=== PATIENT | male | born 1935 | race Caucasian/White ===

== ENCOUNTER → 2016-09-20 | Outpatient (CLI) | payer MEDICARE, OTHER ==
[2016-09-20 13:31] LABS: ANION GAP 13 (5-19); BLOOD UREA NITROGEN 45 mg/dL (7-20); CALCIUM 10.8 mg/dL (8.4-10.2); CARBON DIOXIDE 21 mmol/L (22-30); CHLORIDE 106 mmol/L (98-107); GLUCOSE 128 mg/dL (75-110); POTASSIUM 5.3 mmol/L (3.6-5.0)
== END ==
LOC: OD 09:17
PROVIDERS: ATTEND Physician Assistant
DX: E87.5 Hyperkalemia (principal)
CPT/HCPCS: 36415; 80048

== ENCOUNTER 2017-04-05 11:51 | Day surgery (SDC) | payer MEDICARE, OTHER ==
[~2017-04-05 11:51] MED LIST: DIPHENHYDRAMINE HCL 50 MG/ML VIAL ONE; EPINEPHRINE INJ 1 MG/10 ML DISP.SYRIN ONE; FLUMAZENIL INJ 0.5 MG/5 ML VIAL ONE; GLUCAGON,HUMAN RECOMB 1 MG INJ ONE; MIDAZOLAM 2 MG/2 ML INJ ONE; NALOXONE HCL INJ/PF 0.4 MG/1 ML SDV ONE; ONDANSETRON HCL INJ/PF 4 MG/2 ML SDV ONE
[2017-04-05] MEDS: MIDAZOLAM 2 MG/2 ML INJ ONE ×2 (12:57→13:04)
[2017-04-05] MEDS: FENTANYL CITRATE INJ/PF 100 MCG/2 ML AMPUL ONE ×3 (12:59→13:17)
--- NOTE | 2017-04-05 13:55 | Operative Report ---
Operative Report DATE OF SURGERY: 04/05/17 Operative Report: The risks, benefits and alternatives of the procedure including risks of bleeding, perforation requiring surgery are explained to the patient detail and informed consent was obtained. Patient was taken back to the endoscopy suite and placed in the left, lateral decubital position. Timeout was called. Conscious sedation medications provided. An Olympus videoscope was inserted into the patient's rectum. The scope was then carefully advanced all the way to the cecum. Cecum was identified by the usual anatomical landmarks including the ileocecal valve as well as the appendiceal office. Photodocumentation is obtained. Scope was then sequentially pulled back via the various segments of the colon including the ascending colon, hepatic flexure, transverse colon, splenic flexure, descending colon finding to the rectosigmoid portions of the colon. Retroflexion maneuver was performed. PREOPERATIVE DIAGNOSIS: Change of bowel habits POSTOPERATIVE DIAGNOSIS: Diverticulosis. Mild right side inflammation status post biopsy. Redundancy of colon. Internal hemorrhoids, skin tags OPERATION: Colonoscopy with biopsy SURGEON: YUDY VITAL ANESTHESIA: Moderate Sedation - 4 mg of Versed, 75 mcg of fentanyl. Conscious sedation monitoring time 30 minutes. TISSUE REMOVED OR ALTERED: As noted above. COMPLICATIONS: None. ESTIMATED BLOOD LOSS: None. INTRAOPERATIVE FINDINGS: As described above. PROCEDURE: Patient tolerated procedure well. No immediate postprocedure complications are noted. Patient discharged in good condition. Discharge date 04/05/2017. Discharge diet: Regular. Discharge activity: Regular. 2-3 week follow-up to discuss findings. Patient is instructed to call the office or proceed to the emergency room should there be any further problems or questions. We will wait on pathology.
[2017-04-05 14:34] VITALS: BP 134/58
== END 2017-04-05 14:35 | disposition home or self-care (01) ==
LOC: END 11:51
PROVIDERS: ATTEND Internal Medicine Gastroenterology
PROC: 0DBF8ZX Excision of Right Large Intestine, Via Natural or Artificial Opening Endoscopic, Diagnostic (ICD-10-PCS; principal; 2017-04-05 12:30)
DX: K57.30 Diverticulosis of large intestine without perforation or abscess without bleeding (principal); K52.9 Noninfective gastroenteritis and colitis, unspecified; K64.8 Other hemorrhoids; K64.4 Residual hemorrhoidal skin tags; I12.9 Hypertensive chronic kidney disease with stage 1 through stage 4 chronic kidney disease, or unspecified chronic kidney disease; N18.3 Chronic kidney disease, stage 3 (moderate); I25.10 Atherosclerotic heart disease of native coronary artery without angina pectoris; I48.0 Paroxysmal atrial fibrillation; M15.0 Primary generalized (osteo)arthritis; Z79.899 Other long term (current) drug therapy; Z79.82 Long term (current) use of aspirin
CPT/HCPCS: 45380; 88305 ×2; J2250; J3010; J0171; J1200; J1610; J2310; J2405; J3490

== ENCOUNTER 2017-08-02 16:47 | Inpatient (IN) | payer MEDICARE, OTHER ==
[2017-08-02] MEDS ORDERED: ONDANSETRON HCL INJ/PF 4 MG/2 ML SDV IV PRN (17:22)
[2017-08-02] MEDS ORDERED: ACETAMINOPHEN 325 MG TABLET PO PRN (17:22)
[2017-08-02] MEDS ORDERED: LEVALBUTEROL HCL NEB 0.63 MG/3 ML AMPUL NEB PRN (17:22)
[2017-08-02] MEDS ORDERED: MAG HYDROX/AL HYDROX/SIMETH SUSP 30 ML UDCUP PO PRN (17:26)
--- NOTE | 2017-08-02 17:39 | PDOC H&P ---
History of Present Illness Admission Date/PCP: 08/02/17 16:47 RUTH BUI Patient complains of: shortness of the breath and indigestions History of Present Illness: SANJIV DOVER is a 81 year old male This is a 81-year-old male with a significant history of the paroxysmal atrial fibrillation's and history of the hypertension and chronic kidney disease stage III with recently have a colonoscopy done by Dr. Hood due to the change in the bowel habit was all stable came to the officeMs. not feeling well since last 1 week and very short of breath able to walk a few steps and feel like a very indigestion and epigastric area and every time take a deep breath he feels better Patient's denied any cough or congestion's denied any allergy symptoms Patient's denied any chest pain Patient still have on and off constipations problems Patient's used to see Dr. Mercedes as outpatients cardiology but not seen for a long time Patient's have a history of the A. fib and unable to take an anticoagulations due to the bleeding problems in the past and patient refused to take an anticoagulations In the office patient's still feeling weak and not feeling good and with this few distance feeling short of breath and at this point patient's noticed some more leg swelling decided to admit in the hospital for further evaluation and patient's agree Past Medical History Cardiac Medical History: Reports: Coronary Artery Disease, Hypertension - ON MEDICATION Denies: Myocardial Infarction Pulmonary Medical History: Denies: Asthma, Bronchitis, Chronic Obstructive Pulmonary Disease (COPD), Pneumonia, Tuberculosis Neurological Medical History: Denies: Seizures Renal/ Medical History: Reports: Chronic Kidney Disease GI Medical History: Denies: Hepatitis, Hiatal Hernia Musculoskeltal Medical History: Denies: Arthritis Hematology: Denies: Anemia, Sickle Cell Disease Past Surgical History Past Surgical History: Denies: Appendectomy, Cholecystectomy, Coronary Artery Bypass Graft, Gastric Bypass Surgery, Herniorrhaphy, Pacemaker, Tonsillectomy Social History Information Source: Patient Smoking Status: Former Smoker Frequency of Alcohol Use: None Hx Recreational Drug Use: No Hx Prescription Drug Abuse: No Family History Family History: Reviewed & Not Pertinent Parental Family History Reviewed: Yes Children Family History Reviewed: Yes Sibling(s) Family History Reviewed.: Yes Medication/Allergy Home Medications: Allopurinol [Zyloprim 100 Mg Tablet] 100 mg PO DAILY 09/29/11 Furosemide [Lasix 20 mg Tablet] 20 mg PO .QOD 09/29/11 Ramipril [Altace 10 Mg Capsule] 10 mg PO DAILY 09/29/11 Pravastatin Sodium [Pravachol] 20 mg PO DAILY 10/06/11 Aspirin [Aspirin 81 mg Chewable Tablet] 81 mg PO DAILY 10/09/11 Verapamil HCl [Verapamil ER] 180 mg PO BID 07/09/15 Allergies/Adverse Reactions: No Known Allergies Allergy (Verified 04/05/17 11:52) Review of Systems Constitutional: PRESENT: fatigue, weakness. ABSENT: chills, fever(s), headache( s), weight gain, weight loss Eyes: ABSENT: visual disturbances Ears: ABSENT: hearing changes Cardiovascular: PRESENT: dyspnea on exertion. ABSENT: chest pain, edema, orthropnea, palpitations Respiratory: PRESENT: dyspnea. ABSENT: cough, hemoptysis Gastrointestinal: PRESENT: abdominal pain, bloating, constipation. ABSENT: diarrhea, hematemesis, hematochezia, nausea, vomiting Genitourinary: ABSENT: dysuria, hematuria Musculoskeletal: ABSENT: joint swelling Integumentary: ABSENT: rash, wounds Neurological: ABSENT: abnormal gait, abnormal speech, confusion, dizziness, focal weakness, syncope Psychiatric: ABSENT: anxiety, depression, homidical ideation, suicidal ideation Endocrine: ABSENT: cold intolerance, heat intolerance, menstrual abnormalities, polydipsia, polyuria Hematologic/Lymphatic: ABSENT: easy bleeding, easy bruising, lymphadenopathy Physical Exam Vital Signs: Temp Pulse Resp BP Pulse Ox 97.5 F 74 24 H 121/72 96 08/02/17 17:05 08/02/17 17:05 08/02/17 17:05 08/02/17 17:05 08/02/17 17:05 Intake & Output 08/01/17 08/02/17 08/03/17 06:59 06:59 06:59 Weight 72.3 kg General appearance: PRESENT: no acute distress, well-developed, well-nourished Head exam: PRESENT: atraumatic, normocephalic Eye exam: PRESENT: conjunctiva pink, EOMI, PERRLA. ABSENT: scleral icterus Ear exam: PRESENT: normal external ear exam Mouth exam: PRESENT: moist, tongue midline Neck exam: PRESENT: full ROM. ABSENT: carotid bruit, JVD, lymphadenopathy, thyromegaly Respiratory exam: PRESENT: clear to auscultation liz Cardiovascular exam: PRESENT: RRR. ABSENT: diastolic murmur, rubs, systolic murmur Pulses: PRESENT: normal dorsalis pedis pul, +2 pedal pulses bilateral Vascular exam: PRESENT: normal capillary refill GI/Abdominal exam: PRESENT: normal bowel sounds, soft. ABSENT: distended, guarding, mass, organolmegaly, rebound, tenderness Rectal exam: PRESENT: deferred Extremities exam: PRESENT: pedal edema Musculoskeletal exam: PRESENT: ambulatory Neurological exam: PRESENT: alert, awake, oriented to person, oriented to place , oriented to time, oriented to situation, CN II-XII grossly intact. ABSENT: motor sensory deficit Psychiatric exam: PRESENT: appropriate affect, normal mood. ABSENT: homicidal ideation, suicidal ideation Skin exam: PRESENT: dry, intact, warm. ABSENT: cyanosis, rash Assessment & Plan - Diagnosis (1) Shortness of breath Is this a current diagnosis for this admission?: Yes Plan: With possible multifactorial may be a diastolic heart failure due to the chronic kidney disease will get the chest x-ray and start the patient on IV Lasix (2) Congestive heart failure Qualifiers: Congestive heart failure type: diastolic Congestive heart failure chronicity: acute Qualified Code(s): I50.31 - Acute diastolic (congestive) heart failure Is this a current diagnosis for this admission?: Yes Plan: We will get the 2D echocardiogram and start the patient on IV Lasix (3) Chronic kidney disease Qualifiers: Chronic kidney disease stage: stage 3 (moderate) Qualified Code(s): N18.3 - Chronic kidney disease, stage 3 (moderate) Is this a current diagnosis for this admission?: Yes Plan: Recheck the kidney functions (4) Chronic atrial fibrillation Is this a current diagnosis for this admission?: Yes Plan: Current EKG in my office was sinus rhythm (5) Hypertension Qualifiers: Hypertension type: essential hypertension Qualified Code(s): I10 - Essential (primary) hypertension Is this a current diagnosis for this admission?: Yes Plan: Continues to current medications (6) Abdominal discomfort Is this a current diagnosis for this admission?: Yes Plan: Will get the CT abdomen and pelvis with oral contrast only (7) Constipation Qualifiers: Constipation type: unspecified constipation type Qualified Code(s): K59.00 - Constipation, unspecified Is this a current diagnosis for this admission?: Yes Plan: Continues to MiraLAX and Colace - Time Time Spent: 30 to 50 Minutes Medications reviewed and adjusted accordingly: Yes Anticipated discharge: Home Within: Other - Inpatient Certification Medical Necessity: Significant Comorbidiites Make Outpatient Treatment Too Risky , Need Close Monitoring Due to Risk of Patient Decompensation 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
[2017-08-02 18:10] LABS: ABSOLUTE BASOPHILS # (AUTO) 0.1 10^3/uL (0.0-0.2); ABSOLUTE EOSINOPHILS # (AUTO) 0.2 10^3/uL (0.0-0.6); ABSOLUTE LYMPHOCYTES (AUTO) 1.3 10^3/uL (0.5-4.7); ABSOLUTE MONOCYTES (AUTO) 1.4 10^3/uL (0.1-1.4); BASOPHILS % (AUTO) 0.6 % (0-2); EOSINOPHILS % (AUTO) 2.5 % (0-6); HEMATOCRIT 37.6 % (37.9-51.0); HEMOGLOBIN 12.3 g/dL (13.5-17.0); LYMPHOCYTES % (AUTO) 14.3 % (13-45); MEAN CORPUSCULAR HEMOGLOBIN 32.6 pg (27.0-33.4); MEAN CORPUSCULAR HGB CONC 32.7 g/dL (32.0-36.0); MEAN CORPUSCULAR VOLUME 100 fl (80-97); MONOCYTES % (AUTO) 15.3 % (3-13); PLATELET COUNT 296 10^3/uL (150-450); RED BLOOD COUNT 3.78 10^6/uL (4.35-5.55); SEGMENTED NEUTROPHILS % (AUTO) 67.3 % (42-78); TOTAL CELLS COUNTED % (AUTO) 100 %; WHITE BLOOD COUNT 8.9 10^3/uL (4.0-10.5)
[2017-08-02 18:18] LABS: ANION GAP 13 (5-19); BLOOD UREA NITROGEN 35 mg/dL (7-20); CALCIUM 10.7 mg/dL (8.4-10.2); CARBON DIOXIDE 23 mmol/L (22-30); CHLORIDE 101 mmol/L (98-107); CREATINE KINASE 46 U/L (55-170); GLUCOSE 92 mg/dL (75-110); POTASSIUM 5.6 mmol/L (3.6-5.0); SODIUM 137.3 mmol/L (137-145)
[2017-08-02] MEDS ORDERED: ENOXAPARIN SODIUM INJ 30 MG/0.3 ML DISP.SYRIN SUBCUT ONE (18:30)
[2017-08-02 18:31] LABS: CREATINE KINASE MB 1.52 ng/mL (<4.55); TROPONIN I 0.017 ng/mL
[2017-08-02] MEDS ORDERED: SODIUM POLYSTYRENE SULFONATE 15 GM/60 ML PO ONE (19:45)
--- NOTE | 2017-08-02 19:53 | RADIOLOGY REPORT (SQ) ---
EXAM DESCRIPTION: NM LUNG VENT/PERF SCAN COMPLETED DATE/TIME: 08/02/2017 7:27 pm REASON FOR STUDY: sob N18.3 CHRONIC KIDNEY DISEASE, STAGE 3 (MODERATE) I50.30 UNSPECIFIED DIASTOLI C (CONGESTIVE) HEART FAILURE I48.0 PAROXYSMAL ATRIAL FIBRILLATION COMPARISON: None. RADIONUCLIDE AND DOSE: 5.3 millicuries TC-99m MAA Intravenous 32.2 millicuries TC-99m DTPA Inhaled aerosol TECHNIQUE: Eight views of the lungs acquired post ventilation of DTPA aerosol. Eight matching views of the lungs acquired following injection of MAA. LIMITATIONS: Heterogeneous centralized distribution of DTPA aerosol during ventilatory phase. FINDINGS: VENTILATION: Heterogeneous centralized distribution of DTPA aerosol during ventilatory pha se. PERFUSION: Perfusion images with heterogeneous activity with multiple bilateral segmental defects. OTHER: No other significant finding. IMPRESSION: Perfusion images with heterogeneous activity with multiple bilateral segmental defects, chronicity undetermined.Heterogeneous centralized distribution of DTPA aerosol during ventilatory pha se limit assessment of ventilation-perfusion mismatch. TECHNICAL DOCUMENTATION: JOB ID: [id number] [place]-72 2010 [employer]- All Rights Reserved
[2017-08-02] MEDS: FUROSEMIDE INJ/PF 20 MG/2 ML SDV IV SCH (21:17)
[2017-08-03 00:41] LABS: CREATINE KINASE MB 2.32 ng/mL (<4.55); TROPONIN I 0.036 ng/mL
[2017-08-03] MEDS: LANSOPRAZOLE 15 MG TAB.RAP.DR PO SCH ×2 (06:21→17:21)
[2017-08-03 06:24] LABS: ABSOLUTE BASOPHILS # (AUTO) 0.1 10^3/uL (0.0-0.2); ABSOLUTE EOSINOPHILS # (AUTO) 0.5 10^3/uL (0.0-0.6); ABSOLUTE LYMPHOCYTES (AUTO) 1.4 10^3/uL (0.5-4.7); ABSOLUTE MONOCYTES (AUTO) 1.3 10^3/uL (0.1-1.4); ABSOLUTE NEUT (AUTO) 4.7 10^3/uL (1.7-8.2); BASOPHILS % (AUTO) 0.8 % (0-2); EOSINOPHILS % (AUTO) 6.6 % (0-6); HEMOGLOBIN 11.5 g/dL (13.5-17.0); LYMPHOCYTES % (AUTO) 17.5 % (13-45); MEAN CORPUSCULAR HEMOGLOBIN 32.9 pg (27.0-33.4); MEAN CORPUSCULAR HGB CONC 33.7 g/dL (32.0-36.0); MEAN CORPUSCULAR VOLUME 97 fl (80-97); MONOCYTES % (AUTO) 16.6 % (3-13); PLATELET COUNT 269 10^3/uL (150-450); RED BLOOD COUNT 3.49 10^6/uL (4.35-5.55); RED CELL DISTRIBUTION WIDTH 13.3 % (11.5-14.0); SEGMENTED NEUTROPHILS % (AUTO) 58.5 % (42-78); TOTAL CELLS COUNTED % (AUTO) 100 %; WHITE BLOOD COUNT 8.1 10^3/uL (4.0-10.5)
[2017-08-03 06:37] LABS: ANION GAP 9 (5-19); BLOOD UREA NITROGEN 35 mg/dL (7-20); CALCIUM 9.7 mg/dL (8.4-10.2); CARBON DIOXIDE 27 mmol/L (22-30); CHLORIDE 101 mmol/L (98-107); CREATINE KINASE 74 U/L (55-170); GLUCOSE 85 mg/dL (75-110); SODIUM 137.2 mmol/L (137-145)
[2017-08-03 06:45] LABS: POTASSIUM 4.4 mmol/L (3.6-5.0)
[2017-08-03 06:47] LABS: CREATINE KINASE MB 2.51 ng/mL (<4.55); TROPONIN I 0.034 ng/mL
--- NOTE | 2017-08-03 09:23 | RADIOLOGY REPORT (SQ) ---
EXAM DESCRIPTION: CT ABD/PELVIS ORAL ONLY COMPLETED DATE/TIME: 08/02/2017 7:38 pm REASON FOR STUDY: Abdominal pain N18.3 CHRONIC KIDNEY DISEASE, STAGE 3 (MODERATE) I50.30 UNSPECIFI ED DIASTOLIC (CONGESTIVE) HEART FAILURE I48.0 PAROXYSMAL ATRIAL FIBRILLATION COMPARISON: None. TECHNIQUE: CT scan of the abdomen and pelvis performed with oral contrast and no intravenous contras t. Images reviewed with lung, soft tissue, and bone windows. Reconstructed coronal and sagittal MPR i mages reviewed. All images stored on PACS. All CT scanners at this facility use dose modulation, iterative reconstruction, and/or weight based d osing when appropriate to reduce radiation dose to as low as reasonably achievable (ALARA). [facility]: Dose Right [facility]: CareDose [facility]: Dose Right [facility]: Teradose 4D [facility]: GroundLink RADIATION DOSE: CT Rad equipment meets quality standard of care and radiation dose reduction techniq ues were employed. CTDIvol: 6.8 mGy. DLP: 358 mGy-cm. mGy. LIMITATIONS: None. FINDINGS: LOWER CHEST: No significant findings. No nodules or infiltrates. NON-CONTRASTED LIVER, SPLEEN, ADRENALS: Evaluation limited by lack of IV contrast. No identified sign ificant masses. PANCREAS: No masses. No peripancreatic inflammatory changes. GALLBLADDER: No identified stones by CT criteria. No inflammatory changes to suggest cholecystitis. RIGHT KIDNEY AND URETER: Cortical scarring. 1 cm cortical cyst. No suspicious masses. Assessment li mited by lack of IV contrast. No significant calcifications. No hydronephrosis or hydroureter. LEFT KIDNEY AND URETER: Cortical scarring. No suspicious masses. Assessment limited by lack of IV co ntrast. Calyceal calculi, the largest in the lower pole measuring 6 mm. No hydronephrosis or hydr oureter. AORTA AND RETROPERITONEUM: No aneurysm. No retroperitoneal masses or adenopathy. BOWEL AND PERITONEAL CAVITY: Scattered colonic diverticuli, particularly in the descending and sigmoi d colon. No obvious masses or inflammatory changes. No free fluid. APPENDIX: Normal. PELVIS, BLADDER, AND ABDOMINAL WALL: No abnormal pelvic masses. No abdominal wall hernias. Bladder is somewhat distended. BONES: No significant findings. Degenerative changes in the spine. OTHER: No other significant finding. IMPRESSION: 1. THE BLADDER APPEARS SOMEWHAT DISTENDED. THIS MAY BE INCIDENTAL BUT NEED TO EXCLUDE THE POSSIBILIT Y OF BLADDER OUTLET OBSTRUCTION. 2. COLONIC DIVERTICULOSIS. NO CT FINDINGS OF ACUTE DIVERTICULITIS. 3. NONOBSTRUCTING CALYCEAL CALCULI IN THE LEFT KIDNEY. 4. OTHER CHRONIC FINDINGS ABOVE. NO ACUTE ABDOMINAL PROCESS. TECHNICAL DOCUMENTATION: JOB ID: [id number] Quality ID # [id number]: Final reports with documentation of one or more dose reduction techniques (e.g., Au tomated exposure control, adjustment of the mA and/or kV according to patient size, use of iterative reconstruction technique) 2010 [employer]- All Rights Reserved
--- NOTE | 2017-08-03 09:25 | RADIOLOGY REPORT (SQ) ---
EXAM DESCRIPTION: CHEST PA/LAT COMPLETED DATE/TIME: 08/02/2017 7:41 pm REASON FOR STUDY: sob N18.3 CHRONIC KIDNEY DISEASE, STAGE 3 (MODERATE) I50.30 UNSPECIFIED DIASTOLI C (CONGESTIVE) HEART FAILURE I48.0 PAROXYSMAL ATRIAL FIBRILLATION COMPARISON: 12/02/2014. NUMBER OF VIEWS: Two view. TECHNIQUE: Frontal and lateral radiographic views of the chest acquired. LIMITATIONS: None. FINDINGS: LUNGS AND PLEURA: Chronic scarring. No opacities, masses or pneumothorax. No pleural effu allen. Attenuated blood vessels and flattened rachael-diaphragms. MEDIASTINUM AND HILAR STRUCTURES: No masses. No contour abnormalities. HEART AND VASCULAR STRUCTURES: Heart normal in size and contour. No evidence for failure. BONES: No acute findings. Degenerative changes in the spine. HARDWARE: None in the chest. OTHER: No other significant finding. IMPRESSION: COPD. NO ACUTE RADIOGRAPHIC FINDING IN THE CHEST. TECHNICAL DOCUMENTATION: JOB ID: [id number] [employer]- All Rights Reserved
[2017-08-03] MEDS: ENOXAPARIN SODIUM INJ 30 MG/0.3 ML DISP.SYRIN SUBCUT SCH (09:35)
[2017-08-03] MEDS: FUROSEMIDE INJ/PF 20 MG/2 ML SDV IV SCH ×2 (09:35→22:02)
[2017-08-03] MEDS: DOCUSATE SODIUM 100 MG CAPSULE PO SCH (09:36)
[2017-08-03] MEDS ORDERED: INFLUENZA ADLT QUAD (36MOS+) 2017-18 VAC 0.5 ML SYR IM PRN (10:59)
--- NOTE | 2017-08-03 12:16 | RADIOLOGY REPORT (SQ) ---
EXAM DESCRIPTION: VENOUS BILATERAL LOWER COMPLETED DATE/TIME: 08/03/2017 12:07 pm REASON FOR STUDY: leg swelling N18.3 CHRONIC KIDNEY DISEASE, STAGE 3 (MODERATE) I50.30 UNSPECIFIED DIASTOLIC (CONGESTIVE) HEART FAILURE I48.0 PAROXYSMAL ATRIAL FIBRILLATION COMPARISON: None. TECHNIQUE: Dynamic and static washington scale and color images acquired of both lower extremity venous sy stems. Selected spectral images acquired with additional compression and augmentation maneuvers. Imag es stored on PACS. LIMITATIONS: None. FINDINGS: RIGHT LEG COMMON FEMORAL AND FEMORAL: Normal phasicity, compression and augmentation. No visualized echogenic m aterial on washington scale. No defects on color images. POPLITEAL: Normal compression and augmentation. No visualized echogenic material on washington scale. No de fects on color images. CALF VESSELS: Normal compression and augmentation. No visualized echogenic material on washington scale. No defects on color image. GSV AND SSV: Normal compression. No visualized echogenic material on washington scale. No defects on color images. ANY DEEP VENOUS INSUFFICIENCY: Not evaluated. ANY EVIDENCE OF POPLITEAL CYST: No. OTHER: No other significant finding. LEFT LEG COMMON FEMORAL AND FEMORAL: Normal phasicity, compression and augmentation. No visualized echogenic m aterial on washington scale. No defects on color images. POPLITEAL: Normal compression and augmentation. No visualized echogenic material on washington scale. No de fects on color images. CALF VESSELS: Normal compression and augmentation. No visualized echogenic material on washington scale. No defects on color images. GSV AND SSV: Normal compression. No visualized echogenic material on washington scale. No defects on color images. ANY DEEP VENOUS INSUFFICIENCY: Not evaluated. ANY EVIDENCE POPLITEAL CYST: No. OTHER: No other significant finding. IMPRESSION: NO EVIDENCE DVT OR SVT IN EITHER LEG. TECHNICAL DOCUMENTATION: JOB ID: [id number] [employer]- All Rights Reserved
--- NOTE | 2017-08-03 12:39 | XCELERA REPORT ---
[address] [address] Transthoracic Echocardiogram Report Name: SANJIV DOVER Age: 81 yrs Gender: Male : 1935 Patient Status: Inpatient Patient Location: [address] [place] [address] Study Date: 08/03/2017 10:12 AM Height: 70 in Weight: 160 lb BSA: 1.9 m2 Procedure: A complete two-dimensional transthoracic echocardiogram was performed (2D, M-mode, spectral and color flow Doppler). The study was technically difficult with many images being suboptimal in quality. Reason For Study: CHEST PAIN,SOB Ordering Physician: DYLAN BUSTAMANTE Performed By: Nhung Dudley Interpretation Summary Left ventricular systolic function is borderline reduced. The Ejection Fraction estimate is 50-55% Doppler measurements suggest pseudonormalized left ventricular relaxation, which is associated with grade II/IV or mild to moderate diastolic dysfunction There is borderline concentric left ventricular hypertrophy. The left ventricle is grossly normal size. Not all wall segments were well visualized. Regional wall motion abnormalities cannot be excluded due to limited visualization. The right ventricle is mildly dilated. The right atrium is mild to moderately dilated. The left atrium is mildly dilated. There is a mild amount of mitral regurgitation There is no mitral valve stenosis. There is mild aortic stenosis There is a peak gradient of 20-25 mm of Hg. No aortic regurgitation is present. No tricuspid regurgitation. There is no tricuspid stenosis. The aortic root is not well visualized. The inferior vena cava appeared normal and decreased > 50% with respiration (RAP 5-10 mmHg) There is no pericardial effusion. MMode/2D Measurements & Calculations RVDd: 2.9 cm LVIDd: 4.8 cm FS: 26.8 % Ao root diam: 3.5 cm IVSd: 0.85 cm LVIDs: 3.5 cm EDV(Teich): 109.3 ml LVPWd: 0.91 cmESV(Teich): 52.3 ml Ao root area: 9.8 cm2 EF(Teich): 52.2 % LA dimension: 4.0 cm LVOT diam: 2.0 cm LVOT area: 3.0 cm2 Doppler Measurements & Calculations MV E max iban: MV P1/2t max iban: Ao V2 max: LV V1 max P.1 cm/sec 107.6 cm/sec 227.9 cm/sec 4.4 mmHg MV P1/2t: 49.8 msec Ao max PG: LV V1 mean PG: MVA(P1/2t): 4.4 cm2 20.8 mmHg 2.6 mmHg MV dec slope: Ao V2 mean: LV V1 max: 632.2 cm/sec2 128.5 cm/sec 104.7 cm/sec Ao mean PG: LV V1 mean: 8.7 mmHg 74.5 cm/sec Ao V2 VTI: LV V1 VTI: 29.9 cm 17.8 cm FAUSTO(I,D): 1.8 cm2 FAUSTO(V,D): 1.4 cm2 SV(LVOT): 53.5 ml PA V2 max: 77.0 cm/sec PA max P.4 mmHg Left Ventricle The left ventricle is grossly normal size. There is borderline concentric left ventricular hypertrophy. Left ventricular systolic function is borderline reduced. The Ejection Fraction estimate is 50-55%. Doppler measurements suggest pseudonormalized left ventricular relaxation, which is associated with grade II/IV or mild to moderate diastolic dysfunction. Not all wall segments were well visualized. Regional wall motion abnormalities cannot be excluded due to limited visualization. Right Ventricle The right ventricle is mildly dilated. Right ventricular function cannot be assessed due to poor image quality. Atria The right atrium is mild to moderately dilated. The left atrium is mildly dilated. Interarterial septum not well visualized and not well dopplered. Cannot comment on ASD/PFO presence. Mitral Valve The mitral valve is grossly normal. There is no mitral valve stenosis. There is a mild amount of mitral regurgitation. Aortic Valve The aortic valve is mildly calcified. There is mild aortic stenosis. There is a peak gradient of 20-25 mm of Hg. No aortic regurgitation is present. Tricuspid Valve The tricuspid valve is not well visualized secondary to technical limitations. There is no tricuspid stenosis. No tricuspid regurgitation. Pulmonic Valve The pulmonic valve is not well visualized. Great Vessels The aortic root is not well visualized. The inferior vena cava appeared normal and decreased > 50% with respiration (RAP 5-10 mmHg). Effusions There is no pericardial effusion. : DYLAN BUSTAMANTE > Ryne Leon
--- NOTE | 2017-08-03 13:15 | PDOC PROGRESS REPORT ---
Subjective Subjective:: Patient is currently doing fair Patient's VQ scan is not very clear but definitely some perfusion defect Patient's ultrasound of the lower extremity was negative for any DVT and the d- dimer is mildly elevated Patient echocardiogram suggests some diastolic dysfunctions Patient's denied any chest pain denied any shortness of the breath while resting Patient have a history of the 60 year of the smoking and it definitely patient have a COPD Reason For Visit: SHORTNESS OF BREATH Physical Exam Vital Signs: Temp Pulse Resp BP Pulse Ox 98.0 F 93 20 125/69 91 L 08/03/17 11:55 08/03/17 11:55 08/03/17 11:55 08/03/17 11:55 08/03/17 11:55 Intake & Output 08/02/17 08/03/17 08/04/17 06:59 06:59 06:59 Intake Total 403 300 Balance 403 300 Weight 73 kg General appearance: PRESENT: no acute distress, well-developed, well-nourished Head exam: PRESENT: atraumatic, normocephalic Eye exam: PRESENT: conjunctiva pink, EOMI, PERRLA. ABSENT: scleral icterus Ear exam: PRESENT: normal external ear exam Mouth exam: PRESENT: moist, tongue midline Neck exam: PRESENT: full ROM. ABSENT: carotid bruit, JVD, lymphadenopathy, thyromegaly Respiratory exam: PRESENT: clear to auscultation liz Cardiovascular exam: PRESENT: RRR. ABSENT: diastolic murmur, rubs, systolic murmur Pulses: PRESENT: normal dorsalis pedis pul, +2 pedal pulses bilateral Vascular exam: PRESENT: normal capillary refill GI/Abdominal exam: PRESENT: normal bowel sounds, soft. ABSENT: distended, guarding, mass, organolmegaly, rebound, tenderness Rectal exam: PRESENT: deferred Extremities exam: ABSENT: full ROM, left AKA, right AKA, left BKA, right BKA, calf tenderness, joint swelling, pedal edema, tenderness, other Musculoskeletal exam: PRESENT: ambulatory Neurological exam: PRESENT: alert, awake, oriented to person, oriented to place , oriented to time, oriented to situation, CN II-XII grossly intact. ABSENT: motor sensory deficit Psychiatric exam: PRESENT: appropriate affect, normal mood. ABSENT: homicidal ideation, suicidal ideation Skin exam: PRESENT: dry, intact, warm. ABSENT: cyanosis, rash Results Laboratory Results: 08/03/17 06:00 08/03/17 06:00 08/02/17 08/02/17 08/02/17 17:55 17:55 17:55 WBC 8.9 RBC 3.78 L Hgb 12.3 L Hct 37.6 L MCV 100 H MCH 32.6 MCHC 32.7 RDW 14.0 Plt Count 296 Seg Neutrophils % 67.3 Lymphocytes % 14.3 Monocytes % 15.3 H Eosinophils % 2.5 Basophils % 0.6 Absolute Neutrophils 6.0 Absolute Lymphocytes 1.3 Absolute Monocytes 1.4 Absolute Eosinophils 0.2 Absolute Basophils 0.1 Sodium 137.3 Potassium 5.6 H Chloride 101 Carbon Dioxide 23 Anion Gap 13 BUN 35 H Creatinine 2.20 H Est GFR ( Amer) 35 L Est GFR (Non-Af Amer) 29 L Glucose 92 Calcium 10.7 H Magnesium TSH 2.29 08/03/17 08/03/17 06:00 06:00 WBC 8.1 RBC 3.49 L Hgb 11.5 L Hct 34.0 L MCV 97 MCH 32.9 MCHC 33.7 RDW 13.3 Plt Count 269 Seg Neutrophils % 58.5 Lymphocytes % 17.5 Monocytes % 16.6 H Eosinophils % 6.6 H Basophils % 0.8 Absolute Neutrophils 4.7 Absolute Lymphocytes 1.4 Absolute Monocytes 1.3 Absolute Eosinophils 0.5 Absolute Basophils 0.1 Sodium 137.2 Potassium 4.4 D Chloride 101 Carbon Dioxide 27 Anion Gap 9 BUN 35 H Creatinine 2.03 H Est GFR ( Amer) 38 L Est GFR (Non-Af Amer) 32 L Glucose 85 Calcium 9.7 Magnesium 2.0 TSH 08/02/17 08/02/17 08/02/17 17:55 17:55 23:55 Creatine Kinase 46 L 61 CK-MB (CK-2) 1.52 Troponin I 0.017 NT-Pro-B Natriuret Pep 4220 H 08/02/17 08/03/17 08/03/17 23:55 06:00 06:00 Creatine Kinase 74 CK-MB (CK-2) 2.32 2.51 Troponin I 0.036 0.034 NT-Pro-B Natriuret Pep Impressions: Abdomen/Pelvis CT 08/02/17 00:00 IMPRESSION: 1. THE BLADDER APPEARS SOMEWHAT DISTENDED. THIS MAY BE INCIDENTAL BUT NEED TO EXCLUDE THE POSSIBILITY OF BLADDER OUTLET OBSTRUCTION. 2. COLONIC DIVERTICULOSIS. NO CT FINDINGS OF ACUTE DIVERTICULITIS. 3. NONOBSTRUCTING CALYCEAL CALCULI IN THE LEFT KIDNEY. 4. OTHER CHRONIC FINDINGS ABOVE. NO ACUTE ABDOMINAL PROCESS. Lung Scan-VQ NM 08/02/17 00:00 IMPRESSION: Perfusion images with heterogeneous activity with multiple bilateral segmental defects, chronicity undetermined.Heterogeneous centralized distribution of DTPA aerosol during ventilatory phase limit assessment of ventilation-perfusion mismatch. Chest X-Ray 08/02/17 17:25 IMPRESSION: COPD. NO ACUTE RADIOGRAPHIC FINDING IN THE CHEST. Venous Doppler Study 08/03/17 00:00 IMPRESSION: NO EVIDENCE DVT OR SVT IN EITHER LEG. Assessment & Plan - Diagnosis (1) Shortness of breath Is this a current diagnosis for this admission?: Yes Plan: The VQ scan was indeterminant with the patient unable to get the CT angiograms and does not look like patient have any acute PE we consult the information technology teacher for further evaluations with elevated d-dimer Most likely related to the diastolic dysfunctions and related to the underlying COPD (2) Congestive heart failure Qualifiers: Congestive heart failure type: diastolic Congestive heart failure chronicity: acute Qualified Code(s): I50.31 - Acute diastolic (congestive) heart failure Is this a current diagnosis for this admission?: Yes Plan: Continues to IV Lasix (3) Chronic kidney disease Qualifiers: Chronic kidney disease stage: stage 3 (moderate) Qualified Code(s): N18.3 - Chronic kidney disease, stage 3 (moderate) Is this a current diagnosis for this admission?: Yes Plan: We hold the ramipril (4) Chronic atrial fibrillation Is this a current diagnosis for this admission?: Yes Plan: Since do not want anticoagulations (5) Hypertension Qualifiers: Hypertension type: essential hypertension Qualified Code(s): I10 - Essential (primary) hypertension Is this a current diagnosis for this admission?: Yes Plan: Continues to current medications (6) Abdominal discomfort Is this a current diagnosis for this admission?: Yes Plan: Patient CT abdomen pelvis was negative for any acute finding (7) Constipation Qualifiers: Constipation type: unspecified constipation type Qualified Code(s): K59.00 - Constipation, unspecified Is this a current diagnosis for this admission?: Yes Plan: Continues to MiraLAX and Colace - Time Time Spent with patient: 15-24 minutes Medications reviewed and adjusted accordingly: Yes Anticipated discharge: Home Within: Other - Inpatient Certification Medical Necessity: Need Close Monitoring Due to Risk of Patient Decompensation Post Hospital Care: D/C Webmethods Consultant Documentation - Plan Summary Plan Summary: Will get the CT of the chest and continues to other monitor
--- NOTE | 2017-08-03 14:41 | RADIOLOGY REPORT (SQ) ---
EXAM DESCRIPTION: CT CHEST WITHOUT COMPLETED DATE/TIME: 08/03/2017 2:10 pm REASON FOR STUDY: sob/copd/chf N18.3 CHRONIC KIDNEY DISEASE, STAGE 3 (MODERATE) I50.30 UNSPECIFIED DIASTOLIC (CONGESTIVE) HEART FAILURE I48.0 PAROXYSMAL ATRIAL FIBRILLATION COMPARISON: Chest x-ray dated 08/02/2017. TECHNIQUE: CT scan performed of the chest without intravenous contrast. Images reviewed with lung, soft tissue and bone windows. Reconstructed coronal and sagittal MPR images reviewed. All images st ored on PACS. All CT scanners at this facility use dose modulation, iterative reconstruction, and/or weight based d osing when appropriate to reduce radiation dose to as low as reasonably achievable (ALARA). [facility]: Dose Right [facility]: CareDose [facility]: Dose Right [facility]: Teradose 4D [facility]: [employer] Technologies RADIATION DOSE: CT Rad equipment meets quality standard of care and radiation dose reduction techniq ues were employed. CTDIvol: 4.9 mGy. DLP: 204 mGy-cm. mGy. LIMITATIONS: No technical limitations. FINDINGS: LUNGS AND PLEURA: Mild emphysematous changes in the upper lobes. Mild scarring in the rig ht lung. No masses, infiltrates, pneumothorax. No pleural effusions, calcifications. HILAR AND MEDIASTINAL STRUCTURES: No identified masses or abnormal nodes. No obvious aneurysm. HEART AND VASCULAR STRUCTURES: No aneurysm. No pericardial effusion. UPPER ABDOMEN: No significant findings. Limited exam. THYROID AND OTHER SOFT TISSUES: No masses. No adenopathy. BONES: No significant finding. HARDWARE: None in the chest. OTHER: No other significant findings. IMPRESSION: MILD EMPHYSEMATOUS CHANGES AND SCARRING. NO ACUTE FINDING ON NON-CONTRASTED CHEST CT. TECHNICAL DOCUMENTATION: JOB ID: [id number] Quality ID # [id number]: Final reports with documentation of one or more dose reduction techniques (e.g., Au tomated exposure control, adjustment of the mA and/or kV according to patient size, use of iterative reconstruction technique) 2010 [employer]- All Rights Reserved
[2017-08-03] MEDS: ATORVASTATIN CALCIUM 10 MG TABLET PO SCH (22:02)
[2017-08-03] MEDS: VERAPAMIL HCL 180 MG TABLET.SA PO SCH (22:02)
[2017-08-04 05:32] LABS: ANION GAP 10 (5-19); BLOOD UREA NITROGEN 37 mg/dL (7-20); CALCIUM 9.6 mg/dL (8.4-10.2); CARBON DIOXIDE 27 mmol/L (22-30); CHLORIDE 102 mmol/L (98-107); GLUCOSE 93 mg/dL (75-110); POTASSIUM 4.2 mmol/L (3.6-5.0); SODIUM 138.8 mmol/L (137-145)
[2017-08-04] MEDS: LANSOPRAZOLE 15 MG TAB.RAP.DR PO SCH ×2 (06:52→18:53)
--- NOTE | 2017-08-04 08:02 | EKG REPORT ---
SEVERITY:- ABNORMAL ECG - ATRIAL FIBRILLATION : Confirmed by: Hanna Billingsley MD 04-Aug-2017 08:01:39
--- NOTE | 2017-08-04 08:26 | PDOC CONSULTATION ---
Consultation Consult Date: 08/04/17 Attending physician:: DYLAN BUSTAMANTE Consult reason:: Concern PE History of Present Illness Admission Date/PCP: 08/02/17 16:47 RUTH BUI Patient complains of: SOB/NGUYEN History of Present Illness: 81-year-old male with known history of COPD, presents with worsening shortness of breath. He tells me he always has shortness of breath at just a few steps of walking, but generally when he sits he does not have shortness of breath, but about a day to 2 days before admission, he noted that he was having shortness of breath at rest as well. So he presented to his PCPs office, and ultimately was admitted for workup of worsening dyspnea and shortness of breath. He had an extensive workup including VQ scan because his creatinine was too elevated to consider IV contrast. I reviewed the VQ scan, it notes some perfusion ventilation defects, and intermediate risk for PE. However, because of the emphysema there were certainly technical difficulties in that. He had a d-dimer drawn which was 0.58, so barely above normal. He had a CT of the chest without contrast done which did show severe emphysema. He had an echocardiogram which indicated fairly high-grade diastolic dysfunction. He has been diuresed since being admitted, and he feels much better and he feels like he is at baseline now in terms of his lung status. Of note, he does have history of A. fib, and was on chronic anticoagulation for that but unfortunately had recurrent GI bleeding episodes, so ultimately decided against any further anticoagulation for the A. fib. Past Medical History Cardiac Medical History: Reports: Coronary Artery Disease, Hypertension - ON MEDICATION Denies: Myocardial Infarction Pulmonary Medical History: Reports: Chronic Obstructive Pulmonary Disease (COPD) Denies: Asthma, Bronchitis, Pneumonia, Tuberculosis Neurological Medical History: Denies: Seizures Renal/ Medical History: Reports: Chronic Kidney Disease GI Medical History: Denies: Hepatitis, Hiatal Hernia Musculoskeltal Medical History: Denies: Arthritis Hematology: Denies: Anemia, Sickle Cell Disease Past Surgical History Past Surgical History: Denies: Appendectomy, Cholecystectomy, Coronary Artery Bypass Graft, Gastric Bypass Surgery, Herniorrhaphy, Pacemaker, Tonsillectomy Social History Information Source: Patient Smoking Status: Former Smoker Number of Years Smokin Last Time Smoked: 2013 Frequency of Alcohol Use: None Hx Recreational Drug Use: No Hx Prescription Drug Abuse: No Family History Family History: Reviewed & Not Pertinent Parental Family History Reviewed: Yes Children Family History Reviewed: Yes Sibling(s) Family History Reviewed.: Yes Medication/Allergy Home Medications: Allopurinol [Zyloprim 100 mg Tablet] 100 mg PO DAILY 08/02/17 Aspirin [Aspirin 81 mg Chewable Tablet] 81 mg PO DAILY 08/02/17 Furosemide [Lasix 20 mg Tablet] 20 mg PO Q2D@0800 08/02/17 Pravastatin Sodium [Pravachol] 20 mg PO DAILY 08/02/17 Ramipril [Altace 10 mg Capsule] 10 mg PO DAILY 08/02/17 Verapamil HCl [Verapamil ER] 180 mg PO Q12 08/02/17 Allergies/Adverse Reactions: No Known Allergies Allergy (Verified 04/05/17 11:52) Review of Systems Constitutional: ABSENT: chills, fever(s), headache(s), weight gain, weight loss Eyes: ABSENT: visual disturbances Ears: ABSENT: hearing changes Cardiovascular: ABSENT: chest pain, dyspnea on exertion, edema, orthropnea, palpitations Respiratory: ABSENT: cough, hemoptysis Gastrointestinal: ABSENT: abdominal pain, constipation, diarrhea, hematemesis, hematochezia, nausea, vomiting Genitourinary: ABSENT: dysuria, hematuria Musculoskeletal: ABSENT: joint swelling Integumentary: ABSENT: rash, wounds Neurological: ABSENT: abnormal gait, abnormal speech, confusion, dizziness, focal weakness, syncope Psychiatric: ABSENT: anxiety, depression, homidical ideation, suicidal ideation Endocrine: ABSENT: cold intolerance, heat intolerance, polydipsia, polyuria Hematologic/Lymphatic: ABSENT: easy bleeding, easy bruising Physical Exam Vital Signs: Temp Pulse Resp BP Pulse Ox 97.6 F 66 16 134/76 H 93 08/03/17 23:51 08/04/17 02:00 08/03/17 23:51 08/03/17 23:51 08/03/17 23:51 Intake & Output 08/03/17 08/04/17 08/05/17 06:59 06:59 06:59 Intake Total 403 593 Balance 403 593 Weight 73 kg 74.9 kg General appearance: PRESENT: no acute distress, well-developed, well-nourished Head exam: PRESENT: atraumatic, normocephalic Eye exam: PRESENT: conjunctiva pink, EOMI, PERRLA. ABSENT: scleral icterus Ear exam: PRESENT: normal external ear exam Mouth exam: PRESENT: moist, tongue midline Neck exam: ABSENT: carotid bruit, JVD, lymphadenopathy, thyromegaly Respiratory exam: PRESENT: clear to auscultation liz. ABSENT: rales, rhonchi, wheezes Cardiovascular exam: PRESENT: RRR. ABSENT: diastolic murmur, rubs, systolic murmur Pulses: PRESENT: normal dorsalis pedis pul Vascular exam: PRESENT: normal capillary refill GI/Abdominal exam: PRESENT: normal bowel sounds, soft. ABSENT: distended, guarding, mass, organolmegaly, rebound, tenderness Rectal exam: PRESENT: deferred Extremities exam: PRESENT: full ROM. ABSENT: calf tenderness, clubbing, pedal edema Neurological exam: PRESENT: alert, awake, oriented to person, oriented to place , oriented to time, oriented to situation, CN II-XII grossly intact. ABSENT: motor sensory deficit Psychiatric exam: PRESENT: appropriate affect, normal mood. ABSENT: homicidal ideation, suicidal ideation Skin exam: PRESENT: dry, intact, warm. ABSENT: cyanosis, rash Results Laboratory Results: 08/03/17 06:00 08/04/17 05:08 08/04/17 05:08 Sodium 138.8 Potassium 4.2 Chloride 102 Carbon Dioxide 27 Anion Gap 10 BUN 37 H Creatinine 1.94 H Est GFR ( Amer) 40 L Est GFR (Non-Af Amer) 33 L Glucose 93 Calcium 9.6 08/02/17 08/02/17 08/02/17 17:55 17:55 23:55 Creatine Kinase 46 L 61 CK-MB (CK-2) 1.52 Troponin I 0.017 NT-Pro-B Natriuret Pep 4220 H 08/02/17 08/03/17 08/03/17 23:55 06:00 06:00 Creatine Kinase 74 CK-MB (CK-2) 2.32 2.51 Troponin I 0.036 0.034 NT-Pro-B Natriuret Pep Impressions: Abdomen/Pelvis CT 08/02/17 00:00 IMPRESSION: 1. THE BLADDER APPEARS SOMEWHAT DISTENDED. THIS MAY BE INCIDENTAL BUT NEED TO EXCLUDE THE POSSIBILITY OF BLADDER OUTLET OBSTRUCTION. 2. COLONIC DIVERTICULOSIS. NO CT FINDINGS OF ACUTE DIVERTICULITIS. 3. NONOBSTRUCTING CALYCEAL CALCULI IN THE LEFT KIDNEY. 4. OTHER CHRONIC FINDINGS ABOVE. NO ACUTE ABDOMINAL PROCESS. Lung Scan-VQ NM 08/02/17 00:00 IMPRESSION: Perfusion images with heterogeneous activity with multiple bilateral segmental defects, chronicity undetermined.Heterogeneous centralized distribution of DTPA aerosol during ventilatory phase limit assessment of ventilation-perfusion mismatch. Chest X-Ray 08/02/17 17:25 IMPRESSION: COPD. NO ACUTE RADIOGRAPHIC FINDING IN THE CHEST. Chest CT 08/03/17 00:00 IMPRESSION: MILD EMPHYSEMATOUS CHANGES AND SCARRING. NO ACUTE FINDING ON NON- CONTRASTED CHEST CT. Venous Doppler Study 08/03/17 00:00 IMPRESSION: NO EVIDENCE DVT OR SVT IN EITHER LEG. Assessment & Plan - Diagnosis (1) Shortness of breath Is this a current diagnosis for this admission?: Yes Plan: I believe this was related in part to the diastolic dysfunction, he might of been somewhat fluid overloaded, he is much better with diuresis. Some portion may be secondary to mild COPD exacerbation because of the weather changes, generally patients when it is colder out will have worsening breathing status. I do not, however, believe it is highly likely that patient has chronic PE causing this. Lower extremity Doppler was negative for DVT, and d-dimer was only mildly elevated. When we have acute PE we generally see that number above 1 although 0.5 is the cutoff for normal. From a hematologic standpoint, I believe patient can be safely discharged home today, if his breathing remains at baseline then no further workup needed for PE , however if the breathing gets worse again and it cannot be explained by CHF or COPD exacerbation, then repeat d-dimer as well as consideration of CT angiogram with extensive hydration and renal protection may be warranted. - Time Time Spent: Greater than 70 Minutes Anticipated discharge: Home
--- NOTE | 2017-08-04 09:36 | PDOC PROGRESS REPORT ---
Subjective Progress Note for:: 08/04/17 Subjective:: Patient is currently doing much better Patient CT of the chest so significant emphysema Other than that patient other workup is all stable as per discussed with the senior research project manager the VQ scan's unlikely to be any PE Patients does not have any symptoms and the patient's ultrasound of the lower extremity was negative and d-dimer is less than 1 Patient's vitals start feeling better and wants to go home Reason For Visit: SHORTNESS OF BREATH Physical Exam Vital Signs: Temp Pulse Resp BP Pulse Ox 97.3 F 63 16 126/68 H 93 08/04/17 08:00 08/04/17 09:26 08/04/17 09:26 08/04/17 08:00 08/04/17 09:26 Intake & Output 08/03/17 08/04/17 08/05/17 06:59 06:59 06:59 Intake Total 403 593 Balance 403 593 Weight 73 kg 74.9 kg General appearance: PRESENT: no acute distress, well-developed, well-nourished Head exam: PRESENT: atraumatic, normocephalic Eye exam: PRESENT: conjunctiva pink, EOMI, PERRLA. ABSENT: scleral icterus Ear exam: PRESENT: normal external ear exam Mouth exam: PRESENT: moist, tongue midline Neck exam: PRESENT: full ROM. ABSENT: carotid bruit, JVD, lymphadenopathy, thyromegaly Respiratory exam: PRESENT: clear to auscultation liz Cardiovascular exam: PRESENT: RRR. ABSENT: diastolic murmur, rubs, systolic murmur Pulses: PRESENT: normal dorsalis pedis pul, +2 pedal pulses bilateral Vascular exam: PRESENT: normal capillary refill GI/Abdominal exam: PRESENT: normal bowel sounds, soft. ABSENT: distended, guarding, mass, organolmegaly, rebound, tenderness Rectal exam: PRESENT: deferred Extremities exam: ABSENT: pedal edema Musculoskeletal exam: PRESENT: ambulatory Neurological exam: PRESENT: alert, awake, oriented to person, oriented to place , oriented to time, oriented to situation, CN II-XII grossly intact. ABSENT: motor sensory deficit Psychiatric exam: PRESENT: appropriate affect, normal mood. ABSENT: homicidal ideation, suicidal ideation Skin exam: PRESENT: dry, intact, warm. ABSENT: cyanosis, rash Results Laboratory Results: 08/03/17 06:00 08/04/17 05:08 08/04/17 05:08 Sodium 138.8 Potassium 4.2 Chloride 102 Carbon Dioxide 27 Anion Gap 10 BUN 37 H Creatinine 1.94 H Est GFR ( Amer) 40 L Est GFR (Non-Af Amer) 33 L Glucose 93 Calcium 9.6 08/02/17 08/02/17 08/02/17 17:55 17:55 23:55 Creatine Kinase 46 L 61 CK-MB (CK-2) 1.52 Troponin I 0.017 NT-Pro-B Natriuret Pep 4220 H 08/02/17 08/03/17 08/03/17 23:55 06:00 06:00 Creatine Kinase 74 CK-MB (CK-2) 2.32 2.51 Troponin I 0.036 0.034 NT-Pro-B Natriuret Pep Impressions: Abdomen/Pelvis CT 08/02/17 00:00 IMPRESSION: 1. THE BLADDER APPEARS SOMEWHAT DISTENDED. THIS MAY BE INCIDENTAL BUT NEED TO EXCLUDE THE POSSIBILITY OF BLADDER OUTLET OBSTRUCTION. 2. COLONIC DIVERTICULOSIS. NO CT FINDINGS OF ACUTE DIVERTICULITIS. 3. NONOBSTRUCTING CALYCEAL CALCULI IN THE LEFT KIDNEY. 4. OTHER CHRONIC FINDINGS ABOVE. NO ACUTE ABDOMINAL PROCESS. Lung Scan-VQ NM 08/02/17 00:00 IMPRESSION: Perfusion images with heterogeneous activity with multiple bilateral segmental defects, chronicity undetermined.Heterogeneous centralized distribution of DTPA aerosol during ventilatory phase limit assessment of ventilation-perfusion mismatch. Chest X-Ray 08/02/17 17:25 IMPRESSION: COPD. NO ACUTE RADIOGRAPHIC FINDING IN THE CHEST. Chest CT 08/03/17 00:00 IMPRESSION: MILD EMPHYSEMATOUS CHANGES AND SCARRING. NO ACUTE FINDING ON NON- CONTRASTED CHEST CT. Venous Doppler Study 08/03/17 00:00 IMPRESSION: NO EVIDENCE DVT OR SVT IN EITHER LEG. Assessment & Plan - Diagnosis (1) Shortness of breath Is this a current diagnosis for this admission?: Yes Plan: Most likely a from the COPD we will start the patient in the Advair and Spiriva and will schedule the patient's stress test as outpatients for further evaluations for underlying coronary disease (2) Congestive heart failure Qualifiers: Congestive heart failure type: diastolic Congestive heart failure chronicity: acute Qualified Code(s): I50.31 - Acute diastolic (congestive) heart failure Is this a current diagnosis for this admission?: Yes Plan: Continues to p.o. Lasix (3) Chronic kidney disease Qualifiers: Chronic kidney disease stage: stage 3 (moderate) Qualified Code(s): N18.3 - Chronic kidney disease, stage 3 (moderate) Is this a current diagnosis for this admission?: Yes Plan: We hold the ramipril (4) Chronic atrial fibrillation Is this a current diagnosis for this admission?: Yes Plan: Since do not want anticoagulations (5) Hypertension Qualifiers: Hypertension type: essential hypertension Qualified Code(s): I10 - Essential (primary) hypertension Is this a current diagnosis for this admission?: Yes Plan: Continues to current medications (6) Abdominal discomfort Is this a current diagnosis for this admission?: Yes Plan: Patient CT abdomen pelvis was negative for any acute finding (7) Constipation Qualifiers: Constipation type: unspecified constipation type Qualified Code(s): K59.00 - Constipation, unspecified Is this a current diagnosis for this admission?: Yes Plan: Continues to MiraLAX and Colace - Time Time Spent with patient: 15-24 minutes Medications reviewed and adjusted accordingly: Yes Anticipated discharge: Home Within: Other - Inpatient Certification Medical Necessity: Need Close Monitoring Due to Risk of Patient Decompensation Post Hospital Care: D/C Hot Pipe Gauger Documentation - Plan Summary Plan Summary: Continues to current medications will get the barium swallow
[2017-08-04] MEDS: VERAPAMIL HCL 180 MG TABLET.SA PO SCH ×2 (09:47→22:24)
[2017-08-04] MEDS: FUROSEMIDE INJ/PF 20 MG/2 ML SDV IV SCH ×2 (09:47→22:24)
[2017-08-04] MEDS: ASPIRIN 81 MG TABLET, CHEWABLE PO SCH (09:47)
[2017-08-04] MEDS: ENOXAPARIN SODIUM INJ 30 MG/0.3 ML DISP.SYRIN SUBCUT SCH (09:47)
[2017-08-04] MEDS: DOCUSATE SODIUM 100 MG CAPSULE PO SCH (09:47)
[2017-08-04] MEDS: ALLOPURINOL 100 MG TABLET PO SCH (09:47)
[2017-08-04] MEDS ORDERED: FLUTICASONE/SALMETEROL DISKUS 100-50 MCG/DOSE IH ONE (11:00)
[2017-08-04] MEDS ORDERED: TIOTROPIUM BROMIDE DPI 5 CAP/KIT (18 MCG/CAP) IH ONE (11:00)
[2017-08-04] MEDS: FLUTICASONE/SALMETEROL DISKUS 100-50 MCG/DOSE IH SCH (22:23)
[2017-08-04] MEDS: ATORVASTATIN CALCIUM 10 MG TABLET PO SCH (22:24)
[2017-08-05] MEDS: LANSOPRAZOLE 15 MG TAB.RAP.DR PO SCH (05:12)
[2017-08-05 06:01] LABS: ANION GAP 13 (5-19); BLOOD UREA NITROGEN 43 mg/dL (7-20); CALCIUM 9.9 mg/dL (8.4-10.2); CARBON DIOXIDE 25 mmol/L (22-30); CHLORIDE 101 mmol/L (98-107); GLUCOSE 94 mg/dL (75-110); POTASSIUM 4.1 mmol/L (3.6-5.0); SODIUM 138.7 mmol/L (137-145)
[2017-08-05] MEDS: FLUTICASONE/SALMETEROL DISKUS 100-50 MCG/DOSE IH SCH (09:24)
[2017-08-05] MEDS: FUROSEMIDE INJ/PF 20 MG/2 ML SDV IV SCH (09:27)
[2017-08-05] MEDS: ALLOPURINOL 100 MG TABLET PO SCH (09:31)
[2017-08-05] MEDS: ENOXAPARIN SODIUM INJ 30 MG/0.3 ML DISP.SYRIN SUBCUT SCH (09:31)
[2017-08-05] MEDS: ASPIRIN 81 MG TABLET, CHEWABLE PO SCH (09:31)
[2017-08-05] MEDS: VERAPAMIL HCL 180 MG TABLET.SA PO SCH (09:31)
[2017-08-05] MEDS: DOCUSATE SODIUM 100 MG CAPSULE PO SCH (09:31)
[2017-08-05] MEDS ORDERED: TIOTROPIUM BROMIDE DPI 5 CAP/KIT (18 MCG/CAP) IH SCH (10:00)
[2017-08-05 10:46] VITALS: BP 93/45
--- NOTE | 2017-08-05 12:29 | RADIOLOGY REPORT (SQ) ---
EXAM DESCRIPTION: BARIUM SWALLOW ESOPHAGUS COMPLETED DATE/TIME: 08/05/2017 10:31 am REASON FOR STUDY: DYSPAHGIA N18.3 CHRONIC KIDNEY DISEASE, STAGE 3 (MODERATE) I50.30 UNSPECIFIED DI ASTOLIC (CONGESTIVE) HEART FAILURE I48.0 PAROXYSMAL ATRIAL FIBRILLATION COMPARISON: CT chest 08/03/2017 CT abdomen pelvis 08/02/2017 Two-view chest 08/02/2017 TECHNIQUE: Under fluoroscopic guidance, patient ingested thick liquid barium and effervescent bryan ls. Fluoroscopic spot images and routine radiographic images acquired and stored on PACS. 12 MM BARIUM TABLET GIVEN: Yes. The 12 mm barium tablet paused in the distal esophagus, just above a a hiatal hernia for about 10 min utes before passing into the stomach LIMITATIONS: None. FLUOROSCOPY TIME: 2.6 minutes 6 series of digital images saved to PACS. FINDINGS: NEUROMUSCULAR COORDINATION OF SWALLOW: Normal. No aspiration. ESOPHAGEAL MOTILITY: There are feline contractions of the esophagus, indicating mild dysmotility ESOPHAGEAL MUCOSA: Minimal esophageal mucosal irregularity at the GE junction, Laboy's esophagus co uld not be excluded GASTRO-ESOPHAGEAL JUNCTION: There is a small hiatal hernia with unprovoked gastroesophageal reflux pr esent. There is a peptic stricture above the hiatal hernia which prevents passage of the 12 mm bariu m tablet into the stomach. Minimal esophageal mucosal irregularity at the GE junction, Laboy's eso phagus could not be excluded. NON-GI TRACT STRUCTURES: No significant finding. OTHER: No other significant finding. IMPRESSION: Small hiatal hernia with unprovoked gastroesophageal reflux Distal esophageal peptic stricture with minimal mucosal irregularity, Laboy's esophagus could not b e excluded 10 mm barium tablet paused in the esophagus above the peptic stricture for 10 minutes COMMENT: Quality ID [id number]: Final reports for procedures using fluoroscopy that document radiation exp osure indices, or exposure time and number of fluorographic images (if radiation exposure indices are not available) TECHNICAL DOCUMENTATION: JOB ID: [id number] [employer]- All Rights Reserved
--- NOTE | 2017-08-05 13:13 | PDOC DISCHARGE SUMMARY ---
General - Admit/Disc Date/PCP Admission Date/Primary Care Provider: 08/02/17 16:47 RUTH BUI Discharge Date: 08/05/17 - Discharge Diagnosis (1) Shortness of breath Is this a current diagnosis for this admission?: Yes Summary: Currently all stable with multifactorial including the diastolic heart failure with COPD (2) Congestive heart failure Is this a current diagnosis for this admission?: Yes Summary: Diastolic congestive heart failure (3) Chronic kidney disease Is this a current diagnosis for this admission?: Yes Summary: Currently all stable (4) Chronic atrial fibrillation Is this a current diagnosis for this admission?: Yes Summary: Patients do not want to try an anticoagulations continues to aspirin (5) Hypertension Is this a current diagnosis for this admission?: Yes Summary: Currently hold the ramipril due to the chronic kidney disease and hyperkalemia (6) Abdominal discomfort Is this a current diagnosis for this admission?: Yes Summary: Most likely a patient of a gastrostomy reflux disease patients need endoscopy as outpatients with the GI for the peptic stricture (7) Constipation Is this a current diagnosis for this admission?: Yes Summary: Currently use the MiraLAX and the prune juice patient up-to-date with colonoscopy recently (8) Gastroesophageal reflux disease Is this a current diagnosis for this admission?: Yes Summary: Continues on omeprazole 40 mg p.o. daily make appointment to see outpatients fitness floor attendant for endoscopy for further evaluation about the Laboy's esophagus (9) Emphysema lung Is this a current diagnosis for this admission?: Yes Summary: Start the patient on Advair and Spiriva - Additional Information Discharge Diet: Cardiac Discharge Activity: Activity As Tolerated, Balance Activity w/Rest, Weigh Daily Prescriptions: Fluticasone/Salmeterol [Advair 100-50 Diskus 14 Dose/Diskus] 1 inh IH Q12 #1 inhaler Omeprazole 20 mg PO DAILY #30 tablet. Tiotropium Buckner [Spiriva Handihaler 5 Cap/Kit (18 Mcg/Cap)] 1 cap IH DAILY # 30 kit Home Medications: Allopurinol [Zyloprim 100 mg Tablet] 100 mg PO DAILY 08/02/17 Aspirin [Aspirin 81 mg Chewable Tablet] 81 mg PO DAILY 08/02/17 Pravastatin Sodium [Pravachol] 20 mg PO DAILY 08/02/17 Verapamil HCl [Verapamil ER] 180 mg PO Q12 08/02/17 Fluticasone/Salmeterol [Advair 100-50 Diskus 14 Dose/Diskus] 1 inh IH Q12 #1 inhaler 08/05/17 Furosemide [Lasix 20 mg Tablet] 20 mg PO DAILY #30 08/05/17 Omeprazole 20 mg PO DAILY #30 tablet. 08/05/17 Tiotropium Buckner [Spiriva Handihaler 5 Cap/Kit (18 Mcg/Cap)] 1 cap IH DAILY # 30 kit 08/05/17 History of Present Illness History of Present Illness: SANJIV DOVER is a 81 year old male This is a 81-year-old male with a significant history of the paroxysmal atrial fibrillation's and history of the hypertension and chronic kidney disease stage III with recently have a colonoscopy done by Dr. Hood due to the change in the bowel habit was all stable came to the officeMs. not feeling well since last 1 week and very short of breath able to walk a few steps and feel like a very indigestion and epigastric area and every time take a deep breath he feels better Patient's denied any cough or congestion's denied any allergy symptoms Patient's denied any chest pain Patient still have on and off constipations problems Patient's used to see Dr. Mercedes as outpatients cardiology but not seen for a long time Patient's have a history of the A. fib and unable to take an anticoagulations due to the bleeding problems in the past and patient refused to take an anticoagulations In the office patient's still feeling weak and not feeling good and with this few distance feeling short of breath and at this point patient's noticed some more leg swelling decided to admit in the hospital for further evaluation and patient's agree Hospital Course Hospital Course: This 81-year-old male's came to the office because complaint of short of breath and not feeling well patient was admitting in the hospital for further evaluations Underwent for the VQ scan which is indeterminate and the patient have a d-dimer was done was slightly elevated and ultrasound of the lower extremity was all negative Patient's 2D echocardiogram was done with some mild diastolic heart failure but otherwise All stable Patient have a CT abdomen and pelvis was done and CT of the chest was done which all stable except some emphysema Patient is a 60 year history of the smoking Patient of a cervical x-ray was done with so some gastric reflux disease with small stricture Patient otherwise doing well consult the target man about the VQ scan and elevated d-dimer and most likely related to the emphysema related abnormalities but no sign of any PE and even the patient does not want to do an anticoagulations right now due to the history of the GI bleed in the past Patient's expressed to go homes while feeling much better We will follow patient outpatient in 1 week we will arrange for the endoscopy Physical Exam Vital Signs: Temp Pulse Resp BP Pulse Ox 98.9 F 90 17 93/45 L 94 08/05/17 10:42 08/05/17 10:42 08/05/17 10:42 08/05/17 10:42 08/05/17 10:42 Intake & Output 08/04/17 08/05/17 08/06/17 06:59 06:59 06:59 Intake Total 593 2879 237 Output Total 3 Balance 593 2876 237 Weight 74.9 kg 75 kg General appearance: PRESENT: no acute distress, well-developed, well-nourished Head exam: PRESENT: atraumatic, normocephalic Eye exam: PRESENT: conjunctiva pink, EOMI, PERRLA. ABSENT: scleral icterus Ear exam: PRESENT: normal external ear exam Mouth exam: PRESENT: moist, tongue midline Neck exam: PRESENT: full ROM. ABSENT: carotid bruit, JVD, lymphadenopathy, thyromegaly Respiratory exam: PRESENT: clear to auscultation liz Cardiovascular exam: PRESENT: RRR. ABSENT: diastolic murmur, rubs, systolic murmur Pulses: PRESENT: normal dorsalis pedis pul, +2 pedal pulses bilateral Vascular exam: PRESENT: normal capillary refill GI/Abdominal exam: PRESENT: normal bowel sounds, soft. ABSENT: distended, guarding, mass, organolmegaly, rebound, tenderness Rectal exam: PRESENT: deferred Extremities exam: ABSENT: full ROM, left AKA, right AKA, left BKA, right BKA, calf tenderness, joint swelling, pedal edema, tenderness, other Musculoskeletal exam: PRESENT: ambulatory Neurological exam: PRESENT: alert, awake, oriented to person, oriented to place , oriented to time, oriented to situation, CN II-XII grossly intact. ABSENT: motor sensory deficit Psychiatric exam: PRESENT: appropriate affect, normal mood. ABSENT: homicidal ideation, suicidal ideation Skin exam: PRESENT: dry, intact, warm. ABSENT: cyanosis, rash Results Laboratory Results: 08/03/17 06:00 08/05/17 05:04 08/05/17 05:04 Sodium 138.7 Potassium 4.1 Chloride 101 Carbon Dioxide 25 Anion Gap 13 BUN 43 H Creatinine 2.02 H Est GFR ( Amer) 38 L Est GFR (Non-Af Amer) 32 L Glucose 94 Calcium 9.9 08/02/17 08/02/17 08/02/17 17:55 17:55 23:55 Creatine Kinase 46 L 61 CK-MB (CK-2) 1.52 Troponin I 0.017 NT-Pro-B Natriuret Pep 4220 H 08/02/17 08/03/17 08/03/17 23:55 06:00 06:00 Creatine Kinase 74 CK-MB (CK-2) 2.32 2.51 Troponin I 0.036 0.034 NT-Pro-B Natriuret Pep Impressions: Abdomen/Pelvis CT 08/02/17 00:00 IMPRESSION: 1. THE BLADDER APPEARS SOMEWHAT DISTENDED. THIS MAY BE INCIDENTAL BUT NEED TO EXCLUDE THE POSSIBILITY OF BLADDER OUTLET OBSTRUCTION. 2. COLONIC DIVERTICULOSIS. NO CT FINDINGS OF ACUTE DIVERTICULITIS. 3. NONOBSTRUCTING CALYCEAL CALCULI IN THE LEFT KIDNEY. 4. OTHER CHRONIC FINDINGS ABOVE. NO ACUTE ABDOMINAL PROCESS. Lung Scan-VQ NM 08/02/17 00:00 IMPRESSION: Perfusion images with heterogeneous activity with multiple bilateral segmental defects, chronicity undetermined.Heterogeneous centralized distribution of DTPA aerosol during ventilatory phase limit assessment of ventilation-perfusion mismatch. Chest X-Ray 08/02/17 17:25 IMPRESSION: COPD. NO ACUTE RADIOGRAPHIC FINDING IN THE CHEST. Chest CT 08/03/17 00:00 IMPRESSION: MILD EMPHYSEMATOUS CHANGES AND SCARRING. NO ACUTE FINDING ON NON- CONTRASTED CHEST CT. Venous Doppler Study 08/03/17 00:00 IMPRESSION: NO EVIDENCE DVT OR SVT IN EITHER LEG. Esophagus X-Ray 08/05/17 00:00 IMPRESSION: Small hiatal hernia with unprovoked gastroesophageal reflux Distal esophageal peptic stricture with minimal mucosal irregularity, Laboy's esophagus could not be excluded 10 mm barium tablet paused in the esophagus above the peptic stricture for 10 minutes Plan Time Spent: Greater than 30 Minutes - We will stop the ramipril start the patient on PPI and follow-up outpatients endoscopy will repeat the CBC and Chem- 7 in 1 week and follow-up outpatients cardiology also
== END 2017-08-05 11:40 | disposition home or self-care (01) | DRG 291 ==
LOC: 4W 16:47 → OBSVTOIN 16:47 → 4S 19:22
PROVIDERS: ADMIT Family Medicine; ATTEND Family Medicine
PROC: 3E0234Z Introduction of Serum, Toxoid and Vaccine into Muscle, Percutaneous Approach (ICD-10-PCS; principal; 2017-08-05)
DX: I13.0 Hypertensive heart and chronic kidney disease with heart failure and stage 1 through stage 4 chronic kidney disease, or unspecified chronic kidney disease (principal); I50.31 Acute diastolic (congestive) heart failure; J44.1 Chronic obstructive pulmonary disease with (acute) exacerbation; N18.3 Chronic kidney disease, stage 3 (moderate); I48.0 Paroxysmal atrial fibrillation; K30 Functional dyspepsia; K59.00 Constipation, unspecified; Z23 Encounter for immunization; Z79.82 Long term (current) use of aspirin; Z79.899 Other long term (current) drug therapy; Z87.891 Personal history of nicotine dependence
CPT/HCPCS: 36415; 71020; 71250; 74176; 74220; 78582; 80048; 82550; 82553; 83735; 83880; 84443; 84484; 85025; 85379; 90686; 93005; 93010; 93306; 93970; A9540; A9567; G8978-GP; G8979-GP; J1650; J1940; J3490; Q9969

== ENCOUNTER 2017-09-13 12:25 | Day surgery (SDC) | payer MEDICARE, OTHER ==
[2017-09-13] MEDS ORDERED: NALOXONE HCL INJ/PF 0.4 MG/1 ML SDV ONE (12:32)
[2017-09-13] MEDS ORDERED: DIPHENHYDRAMINE HCL 50 MG/ML VIAL ONE (12:32)
[2017-09-13] MEDS ORDERED: ONDANSETRON HCL INJ/PF 4 MG/2 ML SDV ONE (12:32)
[2017-09-13] MEDS ORDERED: GLUCAGON,HUMAN RECOMB 1 MG INJ ONE (12:33)
[2017-09-13] MEDS ORDERED: FLUMAZENIL INJ 0.5 MG/5 ML VIAL ONE (12:33)
[2017-09-13] MEDS ORDERED: EPINEPHRINE INJ 1 MG/10 ML DISP.SYRIN ONE (12:33)
[2017-09-13] MEDS: MIDAZOLAM 2 MG/2 ML INJ ONE ×3 (13:08→13:14)
[2017-09-13] MEDS: FENTANYL CITRATE INJ/PF 100 MCG/2 ML AMPUL ONE ×2 (13:10→13:16)
--- NOTE | 2017-09-13 13:40 | Operative Report ---
Operative Report DATE OF SURGERY: 09/13/17 Operative Report: The risks benefits and alternatives of the procedure explained to the patient in detail and informed consent is obtained.A GIF Olympus video scope was inserted into the patient's mouth and hypopharynx, he tried to call the esophagus is identified intubated and insufflated the scope was then advanced through the esophagus stomach and duodenum retroflexion maneuver is done the esophagus stomach and first and second portions of the duodenum examined PREOPERATIVE DIAGNOSIS: Dysphagia POSTOPERATIVE DIAGNOSIS: Hiatal hernia. Schatzki's ring which is broken. Gastritis status post biopsy rule out Helicobacter pylori OPERATION: EGD with biopsy SURGEON: YUDY VITAL ANESTHESIA: Moderate Sedation - 4 grams of Versed, 50 mcg of fentanyl. Conscious sedation monitoring time 30 minutes. TISSUE REMOVED OR ALTERED: As noted above. COMPLICATIONS: None. ESTIMATED BLOOD LOSS: None. INTRAOPERATIVE FINDINGS: As described above. PROCEDURE: Patient of the procedure well. No immediate postprocedure complications are noted. Patient discharged in good condition. Discharge date 09/13/2017. Discharge diet: Regular. Discharge activity: Regular. 2-3 week follow-up to discuss findings. Patient is instructed to call the office or proceed to the emergency room should there be any further problems or questions. We will symptomatically see how he is doing may need repeat procedure with dilation with the balloon.
[2017-09-13 16:07] VITALS: BP 152/63
== END 2017-09-13 14:40 | disposition home or self-care (01) ==
LOC: END 12:25
PROVIDERS: ATTEND Internal Medicine Gastroenterology
PROC: 0DB68ZX Excision of Stomach, Via Natural or Artificial Opening Endoscopic, Diagnostic (ICD-10-PCS; 2017-09-13)
PROC: 0DB58ZX Excision of Esophagus, Via Natural or Artificial Opening Endoscopic, Diagnostic (ICD-10-PCS; principal; 2017-09-13 13:00)
DX: K22.2 Esophageal obstruction (principal); K29.70 Gastritis, unspecified, without bleeding; K44.9 Diaphragmatic hernia without obstruction or gangrene; I12.9 Hypertensive chronic kidney disease with stage 1 through stage 4 chronic kidney disease, or unspecified chronic kidney disease; N18.9 Chronic kidney disease, unspecified; I48.91 Unspecified atrial fibrillation
CPT/HCPCS: 43239; 88305 ×2; J2250; J3010; J0171; J1200; J1610; J2310; J2405; J3490

== ENCOUNTER 2018-12-30 15:12 | Emergency (ER) | payer MEDICARE, OTHER ==
[2018-12-30] MEDS ORDERED: LIDOCAINE 2% URO-JET 5 ML KIT MM ONE (15:36)
[2018-12-30 17:54] LABS: APPEARANCE,URINE CLEAR; BILIRUBIN,URINE NEGATIVE (NEGATIVE); COLOR,URINE YELLOW; GLUCOSE, URINE NEGATIVE (NEGATIVE); KETONES,URINE NEGATIVE (NEGATIVE); LEUKOCYTE ESTERASE,URINE TRACE (NEGATIVE); NITRITE,URINE NEGATIVE (NEGATIVE); PROTEIN,URINE 100 mg/dL (NEGATIVE); URINE SPECIFIC GRAVITY 1.013; UROBILINOGEN,URINE NEGATIVE mg/dL (<2.0)
--- NOTE | 2018-12-30 18:36 | ER Document Report ---
ED General - General Chief Complaint: Trouble Voiding Stated Complaint: URINARY PROBLEMS Time Seen by Provider: 12/30/18 16:37 Primary Care Provider: DYLAN BUSTAMANTE MD [Primary Care Provider] - Follow up as needed TRAVEL OUTSIDE OF THE [place] IN LAST 30 DAYS: No - HPI Patient complains to provider of: Urinary retention Notes: Patient coming in for local [place] [facility] for possible urinary retention. Patient upon my evaluation however he had a Mcallister catheter placed by nursing staff. Patient states much relief. Patient denies any fever chills nausea by diarrhea. Patient states was placed in the [place] [facility] after being diagnosed with pneumonia. Patient states he is continued antibiotics at the nursing facility. Patient otherwise has no complaints at this time. - Related Data Allergies/Adverse Reactions: No Known Allergies Allergy (Verified 09/13/17 12:30) Past Medical History - Social History Smoking Status: Former Smoker Chew tobacco use (# tins/day): No Frequency of alcohol use: None Drug Abuse: None Family History: Reviewed & Not Pertinent Patient has suicidal ideation: No Patient has homicidal ideation: No - Past Medical History Cardiac Medical History: Reports: Hx Coronary Artery Disease, Hx Hypertension - ON MEDICATION Denies: Hx Heart Attack Pulmonary Medical History: Reports: Hx COPD Denies: Hx Asthma, Hx Bronchitis, Hx Pneumonia, Hx Tuberculosis Neurological Medical History: Denies: Hx Cerebrovascular Accident, Hx Seizures Renal/ Medical History: Denies: Hx Peritoneal Dialysis GI Medical History: Denies: Hx Hepatitis, Hx Hiatal Hernia, Hx Ulcer Musculoskeletal Medical History: Denies Hx Arthritis Infectious Medical History: Denies: Hx Hepatitis Past Surgical History: Denies: Hx Appendectomy, Hx Bowel Surgery, Hx Cholecystectomy, Hx Coronary Artery Bypass Graft, Hx Gastric Bypass Surgery, Hx Herniorrhaphy, Hx Open Heart Surgery, Hx Pacemaker, Hx Tonsillectomy - Immunizations Hx Diphtheria, Pertussis, Tetanus Vaccination: - UNK Hx Pneumococcal Vaccination: 06/07/10 Review of Systems - Review of Systems Constitutional: No symptoms reported EENT: No symptoms reported Cardiovascular: No symptoms reported Respiratory: No symptoms reported Gastrointestinal: No symptoms reported Genitourinary: Retention Male Genitourinary: No symptoms reported Musculoskeletal: No symptoms reported Skin: No symptoms reported Hematologic/Lymphatic: No symptoms reported Neurological/Psychological: No symptoms reported -: Yes All other systems reviewed and negative Physical Exam - Vital signs Interpretation: Normal - General General appearance: Appears well, Alert - HEENT Head: Normocephalic, Atraumatic Eyes: Normal Pupils: PERRL - Respiratory Respiratory status: No respiratory distress Chest status: Nontender Breath sounds: Normal Chest palpation: Normal - Cardiovascular Rhythm: Regular Heart sounds: Normal auscultation Murmur: No - Abdominal Inspection: Normal Distension: No distension Bowel sounds: Normal Tenderness: Nontender Organomegaly: No organomegaly - Back Back: Normal, Nontender - Extremities General upper extremity: Normal inspection, Nontender, Normal color, Normal ROM, Normal temperature General lower extremity: Normal inspection, Nontender, Edema - 2+ pitting, Normal color, Normal ROM, Normal temperature, Normal weight bearing. No: Ayesha's sign - Neurological Neuro grossly intact: Yes Cognition: Normal Orientation: AAOx4 Bennett Coma Scale Eye Opening: Spontaneous Bennett Coma Scale Verbal: Oriented Hawkins Coma Scale Motor: Obeys Commands Bennett Coma Scale Total: 15 Speech: Normal Motor strength normal: LUE, RUE, LLE, RLE Sensory: Normal - Psychological Associated symptoms: Normal affect, Normal mood - Skin Skin Temperature: Warm Skin Moisture: Dry Skin Color: Normal Course - Re-evaluation Re-evalutation: 12/30/18 21:04 Urinalysis not show any signs of overt infection. Patient urine will be sent for culture. Patient will continue with the indwelling Mcallister catheter until he follows with primary care physician - Laboratory Laboratory results interpreted by me: 12/30/18 17:31 Urine Protein 100 H Ur Leukocyte Esterase TRACE H Discharge - Discharge Clinical Impression: Urinary retention Condition: Good Disposition: HOME, SELF-CARE Instructions: Urinary Retention ([facility]) Additional Instructions: Please follow-up with your physician for further evaluation. Referrals: DYLAN BUSTAMANTE MD [Primary Care Provider] - Follow up as needed
== END 2018-12-30 18:45 | disposition home or self-care (01) ==
LOC: ER 15:12
DX: R33.9 Retention of urine, unspecified (principal); R39.198 Other difficulties with micturition; Z87.891 Personal history of nicotine dependence; I25.10 Atherosclerotic heart disease of native coronary artery without angina pectoris; I10 Essential (primary) hypertension; Z79.899 Other long term (current) drug therapy; J44.9 Chronic obstructive pulmonary disease, unspecified
CPT/HCPCS: 99283; 51702; 87086; 87088; 81001; 87186; C1758

== ENCOUNTER 2019-02-05 11:51 | Inpatient (IN) | payer MEDICARE, OTHER ==
[2019-02-05 12:30] LABS: ABSOLUTE EOSINOPHILS # (AUTO) 0.1 10^3/uL (0.0-0.6); ABSOLUTE LYMPHOCYTES (AUTO) 0.9 10^3/uL (0.5-4.7); ABSOLUTE MONOCYTES (AUTO) 1.1 10^3/uL (0.1-1.4); BASOPHILS % (AUTO) 0.5 % (0-2); EOSINOPHILS % (AUTO) 0.8 % (0-6); HEMOGLOBIN 9.4 g/dL (13.5-17.0); MEAN CORPUSCULAR HEMOGLOBIN 30.3 pg (27.0-33.4); MEAN CORPUSCULAR HGB CONC 32.4 g/dL (32.0-36.0); MEAN CORPUSCULAR VOLUME 94 fl (80-97); MONOCYTES % (AUTO) 15.5 % (3-13); PLATELET COUNT 211 10^3/uL (150-450); RED CELL DISTRIBUTION WIDTH 14.9 % (11.5-14.0); SEGMENTED NEUTROPHILS % (AUTO) 70.2 % (42-78); TOTAL CELLS COUNTED % (AUTO) 100 %; WHITE BLOOD COUNT 7.1 10^3/uL (4.0-10.5)
[2019-02-05 12:31] LABS: VENOUS BLOOD BASE EXCESS 6.1 mmol/L; VENOUS BLOOD HCO3 33.4 mmol/L (20-32); VENOUS BLOOD PCO2 59.5 mmHg (35-63); VENOUS BLOOD PH 7.37 (7.30-7.42)
--- NOTE | 2019-02-05 12:46 | RADIOLOGY REPORT (SQ) ---
EXAM DESCRIPTION: CHEST SINGLE VIEW COMPLETED DATE/TIME: 02/05/2019 12:25 pm REASON FOR STUDY: SOB COMPARISON: None. EXAM PARAMETERS: NUMBER OF VIEWS: One view. TECHNIQUE: Single frontal radiographic view of the chest acquired. RADIATION DOSE: NA LIMITATIONS: None. FINDINGS: LUNGS AND PLEURA: Opacification in the right mid lung and left base. Large left pleural e ffusion. MEDIASTINUM AND HILAR STRUCTURES: No masses. Contour normal. HEART AND VASCULAR STRUCTURES: Cardiomegaly. No troy pulmonary edema. BONES: No acute findings. HARDWARE: None in the chest. OTHER: No other significant finding. IMPRESSION: Cardiomegaly with large left pleural effusion. No troy pulmonary edema. Cannot exclud e right upper lobe or left lower lobe pneumonia. TECHNICAL DOCUMENTATION: JOB ID: [id number] [facility]- All Rights Reserved Reading location - IP/workstation name: [email or web address]
[2019-02-05 12:53] LABS: ALANINE AMINOTRANSFERASE 28 U/L (21-72); ALBUMIN 3.2 g/dL (3.5-5.0); ALKALINE PHOSPHATASE 88 U/L (38-126); ANION GAP 8 (5-19); ASPARTATE AMINO TRANSFERASE 18 U/L (17-59); BILIRUBIN,DIRECT 0.4 mg/dL (0.0-0.4); BLOOD UREA NITROGEN 29 mg/dL (7-20); CALCIUM 9.5 mg/dL (8.4-10.2); CARBON DIOXIDE 33 mmol/L (22-30); CHLORIDE 100 mmol/L (98-107); GLUCOSE 98 mg/dL (75-110); POTASSIUM 3.8 mmol/L (3.6-5.0); SODIUM 140.8 mmol/L (137-145); TOTAL PROTEIN 6.2 g/dL (6.3-8.2)
[2019-02-05 13:34] LABS: APPEARANCE,URINE TURBID; BILIRUBIN,URINE NEGATIVE (NEGATIVE); COLOR,URINE YELLOW; GLUCOSE, URINE NEGATIVE (NEGATIVE); KETONES,URINE NEGATIVE (NEGATIVE); LEUKOCYTE ESTERASE,URINE LARGE (NEGATIVE); NITRITE,URINE NEGATIVE (NEGATIVE); PROTEIN,URINE 100 mg/dL (NEGATIVE); URINE SPECIFIC GRAVITY 1.013; UROBILINOGEN,URINE NEGATIVE mg/dL (<2.0)
[2019-02-05] MEDS ORDERED: AZITHROMYCIN INJ 500 MG VIAL IV ONE (14:35)
[2019-02-05] MEDS ORDERED: CEFTRIAXONE 1 GM/D5W RTU 1 GM/50 ML RTUPB IV ONE (14:35)
[2019-02-05] MEDS ORDERED: CEFEPIME 2 GM/D5W RTU 2 GM/50 ML RTUPB IV ONE (15:30)
[2019-02-05] MEDS ORDERED: VANCOMYCIN HCL INJ 1000 MG VIAL IV ONE (15:32)
[2019-02-05] MEDS ORDERED: LEVOFLOXACIN 750 MG/D5W RTU 750 MG/150 ML RTUPB IV ONE (15:32)
--- NOTE | 2019-02-05 15:49 | ER Document Report ---
ED General - General Chief Complaint: Respiratory Distress Stated Complaint: BREATHING PROBLEMS Time Seen by Provider: 02/05/19 14:28 Primary Care Provider: DYLAN BUSTAMANTE MD [Primary Care Provider] - Follow up as needed TRAVEL OUTSIDE OF THE [place] IN LAST 30 DAYS: No - HPI Notes: Patient is an 83-year-old gentleman who presents emergency department for evaluation of shortness of breath. He has had this for 2 days, it worsened this morning upon waking. He has had some orthopnea. He also complains of cough. He states his edema in his legs is no worse than it normally is. He denies any pain at this time. No known fevers. Patient was recently [facility] He was sent to a rehab facility. He has an indwelling Mcallister catheter, he states was placed while he was in the hospital" no one ever removed it." States he has been taking his medications as prescribed. The patient is on oxygen at 5 L per nasal cannula at home. - Related Data Allergies/Adverse Reactions: No Known Allergies Allergy (Verified 09/13/17 12:30) Past Medical History - General Information source: Patient - Social History Smoking Status: Former Smoker Drug Abuse: None Family History: Reviewed & Not Pertinent Patient has suicidal ideation: No Patient has homicidal ideation: No - Past Medical History Cardiac Medical History: Reports: Hx Congestive Heart Failure, Hx Coronary A rtery Disease, Hx Hypertension - ON MEDICATION Denies: Hx Heart Attack Pulmonary Medical History: Reports: Hx COPD Denies: Hx Asthma, Hx Bronchitis, Hx Pneumonia, Hx Tuberculosis Neurological Medical History: Denies: Hx Cerebrovascular Accident, Hx Seizures Renal/ Medical History: Reports: Hx Renal Insufficiency. Denies: Hx Peritoneal Dialysis GI Medical History: Denies: Hx Hepatitis, Hx Hiatal Hernia, Hx Ulcer Musculoskeletal Medical History: Denies Hx Arthritis Infectious Medical History: Denies: Hx Hepatitis Past Surgical History: Denies: Hx Appendectomy, Hx Bowel Surgery, Hx Cholecystectomy, Hx Coronary Artery Bypass Graft, Hx Gastric Bypass Surgery, Hx Herniorrhaphy, Hx Open Heart Surgery, Hx Pacemaker, Hx Tonsillectomy - Immunizations Hx Diphtheria, Pertussis, Tetanus Vaccination: - UNK Hx Pneumococcal Vaccination: 06/07/10 Review of Systems - Review of Systems Constitutional: No symptoms reported EENT: No symptoms reported Cardiovascular: See HPI Respiratory: See HPI Gastrointestinal: No symptoms reported Genitourinary: No symptoms reported Musculoskeletal: See HPI Skin: No symptoms reported Neurological/Psychological: No symptoms reported Physical Exam - Vital signs Vitals: Resp Pulse Ox 21 H 95 02/05/19 12:18 02/05/19 12:18 - Notes Notes: 83-year-old male who appears his stated age in mild to moderate distress. He has intermittent retractions, particularly suprasternal supraclavicular. He is not tachypneic. Vital signs reviewed, please refer to chart. Head is normocephalic, atraumatic. Pupils equal round, reactive to light. Neck is supple without meningismus. Heart is regular rate and rhythm. Lungs reveal occasional expiratory wheeze and diminished breath sounds at the bases, left greater than right. Abdomen is soft, nontender, normoactive bowel sounds throughout. Extremities without cyanosis, clubbing. Posterior calves are nontender. 3+ pitting edema bilateral lower extremities. Dependent edema noted to bilateral upper extremities as well. Peripheral pulses are equal. Skin is warm and dry. Patient is awake, alert, neurological exam is nonfocal. Course - Re-evaluation Re-evalutation: 02/05/19 19:43 Patient presents emergency department for evaluation. He is an 83-year-old gentleman with COPD and CHF. He has recently been hospitalized in [facility], as well as a resident in a rehab facility. Patient presented for cough and shortness of breath. He had increased work of breathing was placed on BiPAP. Imaging revealed a large pleural effusion, unable to rule out pneumonia. He was covered empirically for hospital-acquired pneumonia. Urine revealed large white blood cells. He was covered for that with antibiotics as well. Cultures are pending at this time. He was given Lasix, but failed to diurese significantly. Second order of Lasix placed. Patient asked for hospice care. On further questioning the patient states he José Manuel has a DNR in place. He did not have any documentation of that. I will note this, there was a nurse, Yina, who was witness to this statement. Patient requested that the BiPAP be removed. Was making him very anxious. I spoke with Dr. Polk, covering for Dr. Bustamante, he will admit the patient. - Vital Signs Vital signs: Temp Pulse Resp BP Pulse Ox 97.7 F 21 H 137/72 H 91 L 0701/19 18:01 02/05/19 18:01 02/05/19 18:01 02/05/19 18:01 - Laboratory Result Diagrams: 02/05/19 12:13 02/05/19 12:13 Laboratory results interpreted by me: 02/05/19 02/05/19 02/05/19 12:13 12:13 12:13 RBC 3.10 L Hgb 9.4 L Hct 29.0 L RDW 14.9 H Monocytes % 15.5 H VBG HCO3 33.4 H Carbon Dioxide 33 H BUN 29 H Creatinine 1.56 H Est GFR ( Amer) 52 L Est GFR (Non-Af Amer) 43 L NT-Pro-B Natriuret Pep Total Protein 6.2 L Albumin 3.2 L Urine Protein Urine Blood Ur Leukocyte Esterase 02/05/19 02/05/19 12:13 13:09 RBC Hgb Hct RDW Monocytes % VBG HCO3 Carbon Dioxide BUN Creatinine Est GFR ( Amer) Est GFR (Non-Af Amer) NT-Pro-B Natriuret Pep 8990 H Total Protein Albumin Urine Protein 100 H Urine Blood LARGE H Ur Leukocyte Esterase LARGE H - Diagnostic Test Radiology reviewed: Reports reviewed Radiology results interpreted by me: 02/05/19 15:51 Chest X-Ray 02/05/19 11:52 IMPRESSION: Cardiomegaly with large left pleural effusion. No troy pulmonary edema. Cannot exclude right upper lobe or left lower lobe pneumonia. - EKG Interpretation by Me Additional EKG results interpreted by me: 02/05/19 19:43 Atrial fibrillation with a rate of 62 bpm. Normal axis and intervals, no acute ST changes concerning for ischemia or infarction. No significant change compared to prior study. Discharge - Discharge Clinical Impression: Pleural effusion, Hospital-acquired pneumonia Congestive heart failure Qualifiers: Heart failure type: unspecified Heart failure chronicity: acute on chronic Qualified Code(s): I50.9 - Heart failure, unspecified Urinary tract infection Qualifiers: Urinary tract infection type: catheter-associated UTI Encounter type: initial encounter Condition: Stable Disposition: ADMITTED INPATIENT Admitting Provider: Royal Polk covering Unit Admitted: Medical Floor Referrals: DYLAN BUSTAMANTE MD [Primary Care Provider] - Follow up as needed
[2019-02-05] MEDS ORDERED: FUROSEMIDE INJ/PF 20 MG/2 ML SDV IV ONE ×2 (17:30→19:45)
[2019-02-05] MEDS ORDERED: LORAZEPAM INJ 2 MG/1 ML VIAL IV ONE (17:30)
[2019-02-05] MEDS ORDERED: IPRATROPIUM/ALBUTEROL 0.5-2.5 MG/3 ML AMPUL NEB PRN (21:21)
[2019-02-06] MEDS: HEPARIN SOD (PORCINE) 5,000 UNIT/ML 1 ML SYRINGE SUBCUT SCH ×4 (00:21→21:01)
[2019-02-06] MEDS: MORPHINE SULFATE 10 MG/ML INJ IV PRN ×2 (00:21→21:01)
--- NOTE | 2019-02-06 00:41 | EKG REPORT ---
SEVERITY:- ABNORMAL ECG - ATRIAL FIBRILLATION, V-RATE 51-74 : Confirmed by: Ryne Leon 06-Feb-2019 00:40:59
--- NOTE | 2019-02-06 13:18 | PDOC H&P ---
History of Present Illness Admission Date/PCP: 02/05/19 20:11 DYLAN BUSTAMANTE MD History of Present Illness: TROY DOVER is a 83 year old male, he has a history of cavitary lesion in the right upper lobe, severe pulmonary hypertension, right heart failure, chronic indwelling Mcallister catheter due to enlarged prostate gland, patient is well-known to me, I transferred this patient to [place] back in January 18, 2019 for evaluation of the large cavitary lesion in the right upper lobe. No intervention was was done in [place], he was medically treated and discharged home on oxygen, patient came to emergency room for evaluation of shortness of breath, respiratory distress. I saw him in the emergency room, he expresses desire to be DNR and also transition his care to hospice because he has accepted the fact that his condition will not get better and he is also tired of recurrent hospital admission. I agree with his sentiments about his health and at this point it is reasonable to transition his care to hospice. He has undiagnosed cavitary lesion in the right upper lobe the cloth doffer in [place] assumed this could be a ruptured bleb. I do not see any indication at this time for IV antibiotic, the last time he was admitted he had thoracentesis, the pleural fluid analysis was consistent with a transudate at the time I felt this was probably false negative transudate because patient is chronically on diuretic, furosemide. Patient's overall condition is very poor, he seems to be in the right frame of mind, he can make his own decisions there is no evidence of impaired cognition, is not stuporous, is alert oriented to time place and person he knows who I am. Past Medical History Cardiac Medical History: Reports: Congestive Heart Failure, Coronary Artery Disease, Hypertension - ON MEDICATION, Other - Right ventricular heart failure, severe pulmonary hypertension Pulmonary Medical History: Reports: Chronic Obstructive Pulmonary Disease (COPD), Respiratory Failure Renal/ Medical History: Reports: Other - BPH with chronic indwelling Mcallister catheter Social History Smoking Status: Former Smoker Frequency of Alcohol Use: None Hx Recreational Drug Use: No Hx Prescription Drug Abuse: No - Advance Directive Resuscitation Status: Do Not Resuscitate Family History Family History: Reviewed & Not Pertinent Parental Family History Reviewed: Yes Children Family History Reviewed: Yes Sibling(s) Family History Reviewed.: Yes Medication/Allergy Home Medications: Albuterol Sulfate [Proair Hfa Inhalation Aerosol 8.5 gm Mdi] 2 puff IH Q6HP PRN 02/05/19 Allopurinol [Zyloprim 100 mg Tablet] 100 mg PO DAILY 02/05/19 Alprazolam [Xanax 0.25 mg Tablet] 0.25 mg PO BIDP PRN 02/05/19 Aspirin [Ecotrin 81 mg EC Tablet] 81 mg PO DAILY 02/05/19 Atorvastatin Calcium [Lipitor 10 mg Tablet] 10 mg PO QHS 02/05/19 Buspirone HCl [Buspar 10 mg Tablet] 10 mg PO Q8 02/05/19 Diltiazem HCl [Cardizem] 120 mg PO DAILY 02/05/19 Finasteride [Proscar 5 mg Tablet] 5 mg PO QPM 02/05/19 Fluoxetine HCl [Prozac] 10 mg PO DAILY 02/05/19 Fluticasone/Vilanterol [Breo 200-25 Mcg Ellipta 14 Dose/Dpi] 1 inh IH DAILY 02/05/19 Furosemide [Lasix 40 mg Tablet] 40 mg PO BID 02/05/19 Hydralazine HCl [Apresoline 25 mg Tablet] 25 mg PO Q8 02/05/19 Ipratropium/Albuterol Sulfate [Duoneb 3 ml Ampul] 3 ml NEB RTQ4HP PRN 02/05/19 Nystatin [Mycostatin Ointment] 1 applic TP BID 02/05/19 Tamsulosin HCl [Flomax 0.4 mg Cap.sr] 0.4 mg PO QPM 02/05/19 Tiotropium Soso [Spiriva Handihaler 5 Cap/Kit (18 Mcg/Cap)] 1 cap IH DAILY 02/05/19 Allergies/Adverse Reactions: No Known Allergies Allergy (Verified 09/13/17 12:30) Review of Systems Constitutional: PRESENT: weakness Eyes: ABSENT: visual disturbances Ears: ABSENT: hearing changes Cardiovascular: PRESENT: dyspnea on exertion, edema Respiratory: PRESENT: cough, dyspnea, sputum Gastrointestinal: ABSENT: abdominal pain, constipation, diarrhea, hematemesis, hematochezia, nausea, vomiting Genitourinary: ABSENT: dysuria, hematuria Musculoskeletal: ABSENT: joint swelling Integumentary: ABSENT: rash, wounds Neurological: PRESENT: numbness Psychiatric: ABSENT: anxiety, depression, homidical ideation, suicidal ideation Endocrine: ABSENT: cold intolerance, heat intolerance, menstrual abnormalities, polydipsia, polyuria Hematologic/Lymphatic: ABSENT: easy bleeding, easy bruising, lymphadenopathy Physical Exam Vital Signs: Temp Pulse Resp BP Pulse Ox 98.6 F 78 16 133/79 H 94 02/06/19 08:19 02/06/19 09:58 02/06/19 09:58 02/06/19 08:19 02/06/19 09:58 Intake & Output 02/05/19 02/06/19 02/07/19 06:59 06:59 06:59 Intake Total 200 Output Total 300 Balance -100 Weight 78 kg General appearance: PRESENT: severe distress Head exam: PRESENT: atraumatic Eye exam: PRESENT: PERRLA Mouth exam: PRESENT: moist, tongue midline Neck exam: PRESENT: full ROM Respiratory exam: PRESENT: wheezes Cardiovascular exam: PRESENT: RRR, +S1, +S2, systolic murmur Vascular exam: PRESENT: normal capillary refill GI/Abdominal exam: PRESENT: normal bowel sounds, soft Rectal exam: PRESENT: deferred Extremities exam: PRESENT: pedal edema Neurological exam: PRESENT: alert, CN II-XII grossly intact Psychiatric exam: PRESENT: appropriate affect, normal mood. ABSENT: homicidal ideation, suicidal ideation Skin exam: PRESENT: dry, intact, warm. ABSENT: cyanosis, rash Results Laboratory Results: 02/05/19 12:13 02/05/19 12:13 02/05/19 13:09 Urine Color YELLOW Urine Appearance TURBID Urine pH 5.0 Ur Specific [place] 1.013 Urine Protein 100 H Urine Glucose (UA) NEGATIVE Urine Ketones NEGATIVE Urine Blood LARGE H Urine Nitrite NEGATIVE Ur Leukocyte Esterase LARGE H Urine WBC (Auto) >182 Urine RBC (Auto) >182 02/05/19 12:13 NT-Pro-B Natriuret Pep 8990 H Impressions: Chest X-Ray 02/05/19 11:52 IMPRESSION: Cardiomegaly with large left pleural effusion. No troy pulmonary edema. Cannot exclude right upper lobe or left lower lobe pneumonia. Assessment & Plan - Diagnosis (1) Acute respiratory failure Qualifiers: Respiratory failure complication: hypoxia Qualified Code(s): J96.01 - Acute respiratory failure with hypoxia Is this a current diagnosis for this admission?: Yes Plan: Patient presently on noninvasive positive pressure ventilation, patient care to be transitioned to hospice (2) Right heart failure Qualifiers: Heart failure chronicity: chronic Qualified Code(s): I50.812 - Chronic right heart failure Is this a current diagnosis for this admission?: Yes (3) Cavitary lesion of lung Is this a current diagnosis for this admission?: Yes (4) Chronic atrial fibrillation Is this a current diagnosis for this admission?: Yes (5) Chronic atrial fibrillation Is this a current diagnosis for this admission?: Yes (6) End stage chronic obstructive pulmonary disease Is this a current diagnosis for this admission?: Yes
--- NOTE | 2019-02-06 19:49 | PDOC PROGRESS REPORT ---
Subjective Progress Note for:: 02/06/19 Subjective:: Patient was admitted yesterday for the management of right cavitary lesion, recurrent pleural effusion, he was seen by the bedside patient still want to have his care transition to hospice Reason For Visit: ACUTE ON CHRONIC RESPIRATORY FAILURE, MULTIPLE Physical Exam Vital Signs: Temp Pulse Resp BP Pulse Ox 98.4 F 114 H 18 122/70 97 02/06/19 14:44 02/06/19 14:44 02/06/19 14:44 02/06/19 14:44 02/06/19 14:44 Intake & Output 02/05/19 02/06/19 02/07/19 06:59 06:59 06:59 Intake Total 200 626 Output Total 300 300 Balance -100 326 Weight 78 kg General appearance: PRESENT: no acute distress Eye exam: PRESENT: PERRLA Cardiovascular exam: PRESENT: +S1, +S2 Neurological exam: PRESENT: alert, CN II-XII grossly intact Results Laboratory Results: 02/05/19 12:13 02/05/19 12:13 02/05/19 12:13 NT-Pro-B Natriuret Pep 8990 H Impressions: Chest X-Ray 02/05/19 11:52 IMPRESSION: Cardiomegaly with large left pleural effusion. No troy pulmonary edema. Cannot exclude right upper lobe or left lower lobe pneumonia. Assessment & Plan - Diagnosis (1) Acute respiratory failure Qualifiers: Respiratory failure complication: hypoxia Qualified Code(s): J96.01 - Acute respiratory failure with hypoxia Is this a current diagnosis for this admission?: Yes Plan: Patient presently on oxygen via nasal cannula (2) Right heart failure Qualifiers: Heart failure chronicity: chronic Qualified Code(s): I50.812 - Chronic right heart failure Is this a current diagnosis for this admission?: Yes (3) Cavitary lesion of lung Is this a current diagnosis for this admission?: Yes (4) Chronic atrial fibrillation Is this a current diagnosis for this admission?: Yes (5) Chronic atrial fibrillation Is this a current diagnosis for this admission?: Yes (6) End stage chronic obstructive pulmonary disease Is this a current diagnosis for this admission?: Yes
[2019-02-07] MEDS: HEPARIN SOD (PORCINE) 5,000 UNIT/ML 1 ML SYRINGE SUBCUT SCH ×3 (05:04→21:22)
[2019-02-07] MEDS ORDERED: IPRATROPIUM/ALBUTEROL 0.5-2.5 MG/3 ML AMPUL NEB PRN (15:42)
[2019-02-07] MEDS ORDERED: ALBUTEROL SULFATE HFA (90 MCG/PUFF) 200 PUFF/8.5 GM MDI IH PRN (15:42)
[2019-02-07] MEDS: FINASTERIDE 5 MG TABLET PO SCH (17:57)
[2019-02-07] MEDS: FUROSEMIDE 40 MG TABLET PO SCH (17:57)
[2019-02-07] MEDS: TAMSULOSIN HCL 0.4 MG CAP.SR.24H PO SCH (17:57)
[2019-02-07] MEDS: NYSTATIN OINTMENT 15 GM TUBE TP SCH (18:34)
--- NOTE | 2019-02-07 19:24 | PDOC PROGRESS REPORT ---
Subjective Progress Note for:: 02/07/19 Subjective:: Patient seen by the bedside Reason For Visit: ACUTE ON CHRONIC RESPIRATORY FAILURE, MULTIPLE Physical Exam Vital Signs: Temp Pulse Resp BP Pulse Ox 97.3 F 120 H 24 H 148/88 H 90 L 02/07/19 16:00 02/07/19 17:37 02/07/19 17:37 02/07/19 16:00 02/07/19 17:37 Intake & Output 02/06/19 02/07/19 02/08/19 06:59 06:59 06:59 Intake Total 200 746 480 Output Total 300 860 250 Balance -100 -114 230 Weight 78 kg 78.2 kg General appearance: PRESENT: no acute distress Eye exam: PRESENT: PERRLA Respiratory exam: PRESENT: clear to auscultation liz Cardiovascular exam: PRESENT: +S1, +S2 GI/Abdominal exam: PRESENT: soft Neurological exam: PRESENT: alert Results Laboratory Results: 02/05/19 12:13 02/05/19 12:13 02/05/19 12:13 NT-Pro-B Natriuret Pep 8990 H Impressions: Chest X-Ray 02/05/19 11:52 IMPRESSION: Cardiomegaly with large left pleural effusion. No troy pulmonary edema. Cannot exclude right upper lobe or left lower lobe pneumonia. Assessment & Plan - Diagnosis (1) Acute respiratory failure Qualifiers: Respiratory failure complication: hypoxia Qualified Code(s): J96.01 - Acute respiratory failure with hypoxia Is this a current diagnosis for this admission?: Yes (2) Right heart failure Qualifiers: Heart failure chronicity: chronic Qualified Code(s): I50.812 - Chronic right heart failure Is this a current diagnosis for this admission?: Yes (3) Cavitary lesion of lung Is this a current diagnosis for this admission?: Yes (4) Chronic atrial fibrillation Is this a current diagnosis for this admission?: Yes (5) Chronic atrial fibrillation Is this a current diagnosis for this admission?: Yes (6) End stage chronic obstructive pulmonary disease Is this a current diagnosis for this admission?: Yes
[2019-02-07] MEDS: BUSPIRONE HCL 10 MG TABLET PO SCH (21:23)
[2019-02-07] MEDS: ATORVASTATIN CALCIUM 10 MG TABLET PO SCH (21:23)
[2019-02-07] MEDS: HYDRALAZINE HCL 25 MG TABLET PO SCH (21:23)
[2019-02-07] MEDS: ALPRAZOLAM 0.25 MG TABLET PO PRN (21:24)
[2019-02-08] MEDS: HEPARIN SOD (PORCINE) 5,000 UNIT/ML 1 ML SYRINGE SUBCUT SCH ×3 (05:20→22:04)
[2019-02-08] MEDS: BUSPIRONE HCL 10 MG TABLET PO SCH ×3 (05:21→22:04)
[2019-02-08] MEDS: HYDRALAZINE HCL 25 MG TABLET PO SCH ×3 (05:21→22:04)
[2019-02-08] MEDS: FUROSEMIDE 40 MG TABLET PO SCH ×2 (09:03→17:33)
[2019-02-08] MEDS: ASPIRIN 81 MG TABLET, ENT COATED PO SCH (09:03)
[2019-02-08] MEDS: ALLOPURINOL 100 MG TABLET PO SCH (09:03)
[2019-02-08] MEDS: DILTIAZEM HCL 120 MG CAP.SR.24H PO SCH (09:03)
[2019-02-08] MEDS: FLUTICASONE/VILANTEROL 200-25 MCG/DOSE IH SCH (09:04)
[2019-02-08] MEDS: FLUOXETINE HCL 20 MG/5 ML UDCUP PO SCH (09:04)
[2019-02-08] MEDS: NYSTATIN OINTMENT 15 GM TUBE TP SCH ×2 (09:05→17:30)
[2019-02-08] MEDS: TIOTROPIUM BROMIDE DPI 5 CAP/KIT (18 MCG/CAP) IH SCH (09:05)
--- NOTE | 2019-02-08 11:29 | PDOC PROGRESS REPORT ---
Subjective Progress Note for:: 02/08/19 Subjective:: Patient seen by the bedside, awaiting hospice placement Reason For Visit: ACUTE ON CHRONIC RESPIRATORY FAILURE, MULTIPLE Physical Exam Vital Signs: Temp Pulse Resp BP Pulse Ox 98.0 F 103 H 18 119/62 95 02/08/19 07:51 02/08/19 08:00 02/08/19 08:00 02/08/19 07:51 02/08/19 08:00 Intake & Output 02/07/19 02/08/19 02/09/19 06:59 06:59 06:59 Intake Total 746 3230 Output Total 860 450 Balance -114 2780 Weight 78.2 kg 77.5 kg General appearance: PRESENT: no acute distress Eye exam: PRESENT: PERRLA Cardiovascular exam: PRESENT: +S1, +S2 Neurological exam: PRESENT: alert Results Laboratory Results: 02/05/19 12:13 02/05/19 12:13 02/05/19 12:13 NT-Pro-B Natriuret Pep 8990 H Impressions: Chest X-Ray 02/05/19 11:52 IMPRESSION: Cardiomegaly with large left pleural effusion. No troy pulmonary edema. Cannot exclude right upper lobe or left lower lobe pneumonia. Assessment & Plan - Diagnosis (1) Acute respiratory failure Qualifiers: Respiratory failure complication: hypoxia Qualified Code(s): J96.01 - Acute respiratory failure with hypoxia Is this a current diagnosis for this admission?: Yes (2) Right heart failure Qualifiers: Heart failure chronicity: chronic Qualified Code(s): I50.812 - Chronic right heart failure Is this a current diagnosis for this admission?: Yes (3) Cavitary lesion of lung Is this a current diagnosis for this admission?: Yes (4) Chronic atrial fibrillation Is this a current diagnosis for this admission?: Yes (5) Chronic atrial fibrillation Is this a current diagnosis for this admission?: Yes (6) End stage chronic obstructive pulmonary disease Is this a current diagnosis for this admission?: Yes
[2019-02-08] MEDS: TAMSULOSIN HCL 0.4 MG CAP.SR.24H PO SCH (17:33)
[2019-02-08] MEDS: FINASTERIDE 5 MG TABLET PO SCH (17:33)
[2019-02-08] MEDS: ATORVASTATIN CALCIUM 10 MG TABLET PO SCH (22:04)
[2019-02-09] MEDS: BUSPIRONE HCL 10 MG TABLET PO SCH ×2 (06:06→13:39)
[2019-02-09] MEDS: HYDRALAZINE HCL 25 MG TABLET PO SCH ×2 (06:06→13:39)
[2019-02-09] MEDS: HEPARIN SOD (PORCINE) 5,000 UNIT/ML 1 ML SYRINGE SUBCUT SCH ×2 (06:07→13:37)
[2019-02-09] MEDS: NYSTATIN OINTMENT 15 GM TUBE TP SCH (09:03)
[2019-02-09] MEDS: ALLOPURINOL 100 MG TABLET PO SCH (09:08)
[2019-02-09] MEDS: FUROSEMIDE 40 MG TABLET PO SCH (09:08)
[2019-02-09] MEDS: ASPIRIN 81 MG TABLET, ENT COATED PO SCH (09:08)
[2019-02-09] MEDS: DILTIAZEM HCL 120 MG CAP.SR.24H PO SCH (09:08)
[2019-02-09] MEDS: FLUOXETINE HCL 20 MG/5 ML UDCUP PO SCH (09:09)
[2019-02-09] MEDS: FLUTICASONE/VILANTEROL 200-25 MCG/DOSE IH SCH (09:10)
[2019-02-09] MEDS: TIOTROPIUM BROMIDE DPI 5 CAP/KIT (18 MCG/CAP) IH SCH (09:10)
--- NOTE | 2019-02-09 10:43 | PDOC DISCHARGE SUMMARY ---
General - Admit/Disc Date/PCP Admission Date/Primary Care Provider: 02/05/19 20:11 DYLAN BUSTAMANTE MD Discharge Date: 02/09/19 - Discharge Diagnosis (1) Acute respiratory failure Is this a current diagnosis for this admission?: Yes (2) Right heart failure Is this a current diagnosis for this admission?: Yes (3) Cavitary lesion of lung Is this a current diagnosis for this admission?: Yes (4) Chronic atrial fibrillation Is this a current diagnosis for this admission?: Yes (5) Chronic atrial fibrillation Is this a current diagnosis for this admission?: Yes (6) End stage chronic obstructive pulmonary disease Is this a current diagnosis for this admission?: Yes - Additional Information Resuscitation Status: Do Not Resuscitate Home Medications: Albuterol Sulfate [Proair HFA Inhalation Aerosol 8.5 gm MDI] 2 puff IH Q6HP PRN 02/05/19 Allopurinol [Zyloprim 100 mg Tablet] 100 mg PO DAILY 02/05/19 Alprazolam [Xanax 0.25 mg Tablet] 0.25 mg PO BIDP PRN 02/05/19 Aspirin [Ecotrin 81 mg EC Tablet] 81 mg PO DAILY 02/05/19 Atorvastatin Calcium [Lipitor 10 mg Tablet] 10 mg PO QHS 02/05/19 Buspirone HCl [Buspar 10 mg Tablet] 10 mg PO Q8 02/05/19 Diltiazem HCl [Cardizem] 120 mg PO DAILY 02/05/19 Finasteride [Proscar 5 mg Tablet] 5 mg PO QPM 02/05/19 Fluoxetine HCl [Prozac] 10 mg PO DAILY 02/05/19 Fluticasone/Vilanterol [Breo 200-25 Mcg Ellipta 14 Dose/Dpi] 1 inh IH DAILY 02/05/19 Furosemide [Lasix 40 mg Tablet] 40 mg PO BID 02/05/19 Hydralazine HCl [Apresoline 25 mg Tablet] 25 mg PO Q8 02/05/19 Ipratropium/Albuterol Sulfate [Duoneb 3 ml Ampul] 3 ml NEB RTQ4HP PRN 02/05/19 Nystatin [Mycostatin Ointment 15 gm] 1 applic TP BID 02/05/19 Tamsulosin HCl [Flomax 0.4 mg Cap.sr] 0.4 mg PO QPM 02/05/19 Tiotropium Benkelman [Spiriva Handihaler 5 Cap/Kit (18 Mcg/Cap)] 1 cap IH DAILY 02/05/19 History of Present Illness History of Present Illness: TROY DOVER is a 83 year old male, he has a history of cavitary lesion in the right upper lobe, severe pulmonary hypertension, right heart failure, chronic indwelling Mcallister catheter due to enlarged prostate gland, patient is well-known to me, I transferred this patient to [place] back in January 18, 2019 for evaluation of the large cavitary lesion in the right upper lobe. No intervention was was done in [place], he was medically treated and discharged home on oxygen, patient came to emergency room for evaluation of sh ortness of breath, respiratory distress. I saw him in the emergency room, he expresses desire to be DNR and also transition his care to hospice because he has accepted the fact that his condition will not get better and he is also tired of recurrent hospital admission. I agree with his sentiments about his health and at this point it is reasonable to transition his care to hospice. He has undiagnosed cavitary lesion in the right upper lobe the forensic science examiner in [place] assumed this could be a ruptured bleb. I do not see any indication at this time for IV antibiotic, the last time he was admitted he had thoracentesis, the pleural fluid analysis was consistent with a transudate at the time I felt this was probably false negative transudate because patient is chronically on diuretic, furosemide. Patient's overall condition is very poor, he seems to be in the right frame of mind, he can make his own decisions there is no evidence of impaired cognition, is not stuporous, is alert oriented to time place and person he knows who I am. 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 Patient does not want any more intervention, he wants to be hospice care. He was treated with oxygen nasal cannula, he was seen in consultation by discharge planning, hospice was arranged for this patient. Physical Exam Vital Signs: Temp Pulse Resp BP Pulse Ox 98.0 F 87 18 132/81 H 98 02/09/19 07:25 02/09/19 07:25 02/09/19 07:25 02/09/19 07:25 02/09/19 07:25 Intake & Output 02/08/19 02/09/19 02/10/19 06:59 06:59 06:59 Intake Total 3230 900 Output Total 450 3550 Balance 2780 -2650 Weight 77.5 kg 77.3 kg General appearance: PRESENT: no acute distress Eye exam: PRESENT: PERRLA Respiratory exam: PRESENT: clear to auscultation liz Cardiovascular exam: PRESENT: +S1, +S2 GI/Abdominal exam: PRESENT: soft Neurological exam: PRESENT: alert Results Laboratory Results: 02/05/19 12:13 02/05/19 12:13 02/05/19 13:09 Mcallister Catheter Urine Culture - Final E.faecium Vre C.albicans/C.dubliniensis 02/05/19 12:13 NT-Pro-B Natriuret Pep 8990 H Impressions: Chest X-Ray 02/05/19 11:52 IMPRESSION: Cardiomegaly with large left pleural effusion. No troy pulmonary edema. Cannot exclude right upper lobe or left lower lobe pneumonia. Qualifiers - * PATIENT BEING DISCHARGED WITH ANY OF THE FOLLOWING DIAGNOSIS: No Reason(s) for not prescribing Overlap Therapy:: Not indicated Stroke Pt being discharged on Anti-thrombolytic therapy?: No Reason(s) for not prescribing Anti-thrombolytic therapy:: Not indicated Stroke Pt being discharged on Anti-coagulation therapy?: No Reason(s) for not prescribing Anti-coagulation therapy:: Not indicated Stroke Pt being discharged on Statins?: No Reason(s) for not prescribing Statins therapy:: Not indicated GA Pt being discharged on Aspirin therapy?: No Reason(s) for not prescribing Aspirin therapy:: Not indicated GA Pt discharged ACEI/ARBS?: No Reason(s) for not prescribing ACEI/ARBS:: Not indicated Acute Heart Failure - Is this a Heart Failure Patient?: No 3. Anticoagulant therapy for permanect/persistent/paraoxysmal Afib or Aflutter: N/A
[2019-02-09 15:33] VITALS: BP 126/73
[2019-02-09] MEDS: ALPRAZOLAM 0.25 MG TABLET PO PRN (15:37)
== END 2019-02-09 16:06 | disposition hospice, home (50) | DRG 189 ==
LOC: ER 11:51 → EH 20:11 → 4S 02-06 01:58
PROVIDERS: ADMIT Internal Medicine; ATTEND Family Medicine
PROC: 5A09457 Assistance with Respiratory Ventilation, 24-96 Consecutive Hours, Continuous Positive Airway Pressure (ICD-10-PCS; principal; 2019-02-05)
DX: J96.01 Acute respiratory failure with hypoxia (principal); J91.0 Malignant pleural effusion; T83.511A Infection and inflammatory reaction due to indwelling urethral catheter, initial encounter; N39.0 Urinary tract infection, site not specified; C80.1 Malignant (primary) neoplasm, unspecified; I48.2 Chronic atrial fibrillation; I50.812 Chronic right heart failure; I27.29 Other secondary pulmonary hypertension; N40.0 Benign prostatic hyperplasia without lower urinary tract symptoms; Z66 Do not resuscitate; J44.9 Chronic obstructive pulmonary disease, unspecified; R91.1 Solitary pulmonary nodule; Y84.6 Urinary catheterization as the cause of abnormal reaction of the patient, or of later complication, without mention of misadventure at the time of the procedure; I25.10 Atherosclerotic heart disease of native coronary artery without angina pectoris; I10 Essential (primary) hypertension; Z96.0 Presence of urogenital implants; Z99.81 Dependence on supplemental oxygen; Z79.82 Long term (current) use of aspirin; Z79.899 Other long term (current) drug therapy; Z87.891 Personal history of nicotine dependence; B95.2 Enterococcus as the cause of diseases classified elsewhere
CPT/HCPCS: 36415; 71045; 80053; 81001; 82803; 83880; 85025; 87040; 87086; 87088; 87186; 93005; 93010; 94660; 96365; 96367; 96375; 99285; J0692; J1644; J1940; J1956; J2060; J2270; J3370; J3490; J7620